=== PATIENT | female | born 1945 ===

== ENCOUNTER 2017-10-10 09:08 | Inpatient (IN) | payer MEDICARE ==
[2017-10-10 09:14] VITALS: BMI 27.4
--- NOTE | 2017-10-10 09:52 | ED PDOC ---
Arrival/HPI - General Chief Complaint: Weakness/Neurological Deficit Time Seen by Provider: 10/10/17 09:39 Historian: Patient - History of Present Illness Narrative History of Present Illness (Text): 10/10/17 09:50 A 72 year old female, whose past medical history includes diabetes and hypertension, brought into the emergency department by EMS complaining of dizziness and feeling unbalanced upon waking around 07:00 this morning. Patient also notes waking up with weakness to left arm and numbness to left finger tips. She states she felt fine prior to going to bed last night. Patient denies any fever, chills, nausea, vomiting, abdominal pain, urinary symptoms, chest pain, shortness of breath, cough, headache or any other complaints. PMD: Dr. Aurea Go Time/Duration: Other (07:00 this morning) Symptom Onset: Other (Pt woke up with symptoms) Symptom Course: Unchanged Quality: Other Context: Home Past Medical History - Provider Review Nursing Documentation Reviewed: Yes - Infectious Disease Hx of Infectious Diseases: None - Cardiac Hx Cardiac Disorders: Yes Hx Hypertension: Yes - Pulmonary Hx Respiratory Disorders: No - Neurological Hx Neurological Disorder: No - HEENT Hx HEENT Disorder: No - Renal Hx Renal Disorder: No - Endocrine/Metabolic Hx Endocrine Disorders: Yes Hx Diabetes Mellitus Type 1: Yes (NIDD) - Hematological/Oncological Hx Blood Disorders: No - Integumentary Hx Dermatological Disorder: Yes Other/Comment: HISTORY OF HIVES FROM BUG BITES - Musculoskeletal/Rheumatological Hx Musculoskeletal Disorders: No - Gastrointestinal Hx Gastritis: Yes - Genitourinary/Gynecological Hx Genitourinary Disorders: No - Psychiatric Hx Psychophysiologic Disorder: No Hx Substance Use: No - Surgical History Hx Hysterectomy: Yes Other/Comment: CYST REMOVED RIGHT LEG - Anesthesia Hx Anesthesia: Yes Hx Anesthesia Reactions: No Hx Malignant Hyperthermia: No Family/Social History - Physician Review Nursing Documentation Reviewed: Yes Family/Social History: No Known Family HX Smoking Status: Never Smoked Hx Alcohol Use: No Hx Substance Use: No Allergies/Home Meds Allergies/Adverse Reactions: Allergies aspirin Adverse Reaction (Intermediate, Verified 10/10/17 09:14) ITCHING Home Medications: Home Meds Medication Instructions Recorded Confirmed Atenolol [Tenormin] 50 mg PO DAILY 05/22/14 10/10/17 Losartan/Hydrochlorothiazide 12.100 mg PO DAILY 05/22/14 10/10/17 [Hyzaar 12.5 mg-100 mg] Omeprazole [Prilosec] 20 mg PO DAILY 05/22/14 10/10/17 Sitagliptin Phosphate [Januvia] 50 mg PO DAILY 05/22/14 10/10/17 hydrOXYzine HCl [Atarax] 10 mg PO DAILY 05/22/14 10/10/17 Glipizide [Glipizide ER] 5 mg PO DAILY 08/18/16 10/10/17 metFORMIN [glucOPHAGE] 500 mg PO DAILY 08/18/16 10/10/17 Losartan [Cozaar] 0 g PO DAILY 10/10/17 10/10/17 Review of Systems - Physician Review All systems were reviewed & negative as marked: Yes - Review of Systems Constitutional: absent: Fevers, Night Sweats Respiratory: absent: SOB, Cough Cardiovascular: absent: Chest Pain Gastrointestinal: absent: Abdominal Pain, Nausea, Vomiting Genitourinary Female: absent: Dysuria, Frequency, Hematuria Neurological: Dizziness (Unbalanced), Other (Left arm weakness with numbness to finger tips). absent: Headache Physical Exam Vital Signs Reviewed: Yes Vital Signs Temp Pulse Resp BP Pulse Ox 10/10/17 14:51 116 H 31 H 10/10/17 13:00 98.9 F 88 18 126/80 98 10/10/17 12:09 93 H 18 185/76 H 98 10/10/17 11:17 88 20 100 10/10/17 11:05 85 205/88 H 10/10/17 09:27 86 20 206/90 H 97 10/10/17 09:09 99.6 F 93 H 20 220/98 H 99 Appearance: Positive for: Well-Appearing, Non-Toxic, Comfortable Pain Distress: None Mental Status: Positive for: Alert and Oriented X 3 Finger Stick Blood Glucose: 388 - Systems Exam Head: Present: Atraumatic, Normocephalic Pupils: Present: PERRL Extroacular Muscles: Present: EOMI Conjunctiva: Present: Normal Mouth: Present: Moist Mucous Membranes Neck: Present: Normal Range of Motion Respiratory/Chest: Present: Clear to Auscultation, Good Air Exchange. No: Respiratory Distress, Accessory Muscle Use Cardiovascular: Present: Regular Rate and Rhythm, Normal S1, S2. No: Murmurs Abdomen: Present: Normal Bowel Sounds. No: Tenderness, Distention, Peritoneal Signs Upper Extremity: Present: Normal Inspection, NORMAL PULSES. No: Cyanosis, Edema Lower Extremity: Present: Normal Inspection, NORMAL PULSES. No: Edema Neurological: Present: GCS=15, CN II-XII Intact, Other (Ataxia left arm). No: Normal Cerebellar Funct Skin: Present: Warm, Dry, Normal Color. No: Rashes Psychiatric: Present: Alert, Oriented x 3, Normal Insight, Normal Concentration Medical Decision Making ED Course and Treatment: 10/10/17 09:51 Code stroke activate at this time. Disc w Dr More, agrees no tpa, requests MRI 10/10/17 11:03 EKG shows NSR at 84 BPM with 1st degree AV block, no acute ischemia. Interpreted by me. Report Date : 10/10/2017 10:14:53 PROCEDURE: CT HEAD WITHOUT CONTRAST. Dictator : Ankur Mandujano MD IMPRESSION: No acute intracranial hemorrhage. Age-indeterminate infarct changes right caudate head though likely chronic due to localized ex vacuo dilatation of the right frontal horn. Chronic appearing pontine lacunar-type infarct changes. Minor chronic periventricular white matter ischemic changes. Mild localized ex vacuo dilatation right frontal horn with mild generalized volume loss. Note these findings were discussed with Dr. Gonzalez at approximately 10: 10 a.m. with written down and read back verification. Report Date : 10/10/2017 12:00:07 Procedure: Chest xray Dictator : Ankur Mandujano MD IMPRESSION: Minor linear atelectasis or scarring left mid to lower lung field. Report Date : 10/10/2017 12:44:06 PROCEDURE: MRI BRAIN WITHOUT CONTRAST Dictator : Ankur Mandujano MD IMPRESSION: Acute/ subacute infarct changes right parasagittal midpons region. Mild to moderate chronic white matter ischemic changes with chronic on lacunar- type infarct right caudate head. Mild generalized volume loss. Note these findings were discussed with Dr. Pulido 1 at approximately 12:30 p.m. with written down and read back verification Report Date : 10/10/2017 12:09:27 PROCEDURE: CT Angiography of the Brain. Dictator : Ankur Mandujano MD IMPRESSION: No evidence of occlusion or significant stenosis however there are some minor calcified atherosclerotic plaque changes seen along on both cavernous carotid siphons. - Critical Care Critical Care Minutes: 45 minutes - Lab Interpretations Lab Results: 10/10/17 10:06 10/10/17 10:06 Lab Results 10/10/17 11:10: Blood Type Confirm O POSITIVE 10/10/17 10:15: Blood Type O POSITIVE, Antibody Screen Negative, BBK History Checked No verified bt 10/10/17 10:06: Vitamin B12 870 10/10/17 10:06: Hemoglobin A1c 7.6 H 10/10/17 10:06: Sodium 137, Potassium 4.3, Chloride 97 L, Carbon Dioxide 23, Anion Gap 21 H, BUN 12, Creatinine 0.5 L, Est GFR ( Amer) > 60, Est GFR ( Non-Af Amer) > 60, Random Glucose 405 H*, Calcium 9.9, Total Bilirubin 0.8, AST 46 H, ALT 36, Alkaline Phosphatase 100, Troponin I < 0.01, Total Protein 8.9 H, Albumin 4.9 H, Globulin 4.1, Albumin/Globulin Ratio 1.2, Triglycerides 183 H, Cholesterol 232 H, LDL Cholesterol Direct 141 H, HDL Cholesterol 68 H 10/10/17 10:06: PT 10.3, INR 0.94, APTT 30.6 10/10/17 10:06: WBC 11.7 H, RBC 4.75, Hgb 14.0, Hct 42.2, MCV 88.8, MCH 29.5, MCHC 33.2, RDW 13.7, Plt Count 370, MPV 10.2, Gran % 82.2 H, Lymph % (Auto) 10.4 L, [place] % (Auto) 6.0, Eos % (Auto) 1.0 L, Baso % (Auto) 0.4, Gran # 9.59 H , Lymph # 1.2, [place] # 0.7 H, Eos # 0.1, Baso # 0.05 10/10/17 09:30: POC Glucose (mg/dL) 388 H - RAD Interpretation Radiology Orders: 10/10/17 09:52 HEAD W/O (CODE STROKE) [CT] Stat CHEST PORTABLE [RAD] Stat 10/10/17 10:05 ANGIOGRAPHY HEAD [CT] Stat 10/10/17 10:06 BRAIN WITHOUT CONTRAST [MRI] Stat - Medication Orders Current Medication Orders: Acetaminophen (Tylenol 325mg Tab) 650 mg PO Q6H PRN PRN Reason: Pain, moderate (4-7) Last Admin: 10/13/17 03:21 Dose: 650 mg MAR Pain/Vitals Document 10/13/17 03:21 GC (Rec: 10/13/17 03:21 GC [id number]) Pain Reassessment Is This A Pain ReAssessment? No Sleep Is patient sleeping during reassessment? No Presence of Pain Presence of Pain Yes Location Pain Location Body Pool Technician Re-Assess: MAR Pain/Vitals Document 10/13/17 04:21 GC (Rec: 10/13/17 04:36 GC [id number]) Pain Reassessment Is This A Pain ReAssessment? Yes Sleep Is patient sleeping during reassessment? Yes Atorvastatin Calcium (Lipitor) 80 mg PO DIN [facility] Last Admin: 10/13/17 18:22 Dose: 80 mg Clonidine HCl (Catapres-Tts2 0.2 Mg/24 Hr) 1 patch TD Q7D@1000 [facility] Last Admin: 10/13/17 13:21 Dose: 1 patch MAR Pulse and Blood Pressure Document 10/13/17 13:21 SG (Rec: 10/13/17 13:22 [email or web address]) Pulse Pulse Rate (60-90) 85 Blood Pressure Blood Pressure (100/60-150/90) 172/81 MAR Transdermal Patch Site Document 10/13/17 13:21 SG (Rec: 10/13/17 13:22 [email or web address]) Transdermal Patch Site Transdermal Patch Site Left Upper Chest Clopidogrel Bisulfate (Plavix) 75 mg PO DAILY [facility] Last Admin: 10/13/17 09:38 Dose: 75 mg Famotidine (Pepcid) 40 mg PO HS [facility] Last Admin: 10/12/17 21:24 Dose: 40 mg Hydralazine HCl (Apresoline) 10 mg IVP Q6H PRN PRN Reason: Other Last Admin: 10/13/17 15:09 Dose: 10 mg IVP Administration Document 10/13/17 15:09 (Rec: 10/13/17 15:10 [email or web address]) Charges for Administration # of IVP Administrations 1 MAR Pulse and Blood Pressure Document 10/13/17 15:09 SG (Rec: 10/13/17 15:10 [email or web address]) Pulse Pulse Rate (60-90) 106 Blood Pressure Blood Pressure (100/60-150/90) 189/75 Hydralazine HCl (Apresoline) 50 mg PO BID [facility] Last Admin: 10/13/17 18:21 Dose: 50 mg MAR Pulse and Blood Pressure Document 10/13/17 18:21 (Rec: 10/13/17 18:22 [email or web address]) Pulse Pulse Rate (60-90) 103 Blood Pressure Blood Pressure (100/60-150/90) 163/58 Hydrochlorothiazide (Microzide) 12.5 mg PO DAILY [facility] Last Admin: 10/13/17 09:39 Dose: 12.5 mg Nicardipine HCl (Cardene Iv Premix) 20 mg in 200 mls @ 50 mls/hr IV .Q4H PRN; Protocol; 5 MG/HR PRN Reason: TITRATE PER MD ORDER Last Titration: 10/11/17 02:00 Dose: 0 mg/hr, 0 mls/hr Titration Intervention Document 10/11/17 02:00 [facility] (Rec: 10/11/17 04:07 [id number]) Titration Intake Titration Intake 30 Cumulative Intake 110 Cumulative Intake (Rx) 110 Waste Amount 0 Container Volume 90 Titration Dosing Titration Dose 0 IV Rate 0 Intake/Decrease Paused Cumulative Dose 11 Insulin Detemir (Levemir) 10 unit SC DAILY [facility] Last Admin: 10/13/17 09:39 Dose: 10 unit MAR Blood Glucose Document 10/13/17 09:39 SG (Rec: 10/13/17 09:40 [email or web address]) Blood Glucose Finger Stick Blood Glucose (70-120) 264 Subcutaneous Administrations Document 10/13/17 09:39 SG (Rec: 10/13/17 09:40 [email or web address]) Charges for Administration # of Subcutaneous Administrations 1 Insulin Human Regular (Humulin R Med) 0 units SC ACHS [facility] PRN Reason: Protocol Last Admin: 10/13/17 18:20 Dose: 5 units MAR Blood Glucose Document 10/13/17 18:20 SG (Rec: 10/13/17 18:21 [email or web address]) Blood Glucose Finger Stick Blood Glucose (70-120) 274 Subcutaneous Administrations Document 10/13/17 18:20 SG (Rec: 10/13/17 18:21 [email or web address]) Charges for Administration # of Subcutaneous Administrations 1 Loratadine (Claritin) 10 mg PO DAILY [facility] Last Admin: 10/13/17 09:38 Dose: 10 mg Losartan Potassium (Cozaar) 100 mg PO DAILY [facility] Last Admin: 10/13/17 09:38 Dose: 100 mg Metoprolol Tartrate (Lopressor) 50 mg PO BID [facility] Last Admin: 10/13/17 18:22 Dose: 50 mg MAR Pulse and Blood Pressure Document 10/13/17 18:22 SG (Rec: 10/13/17 18:22 SG [id number]) Pulse Pulse Rate (60-90) 103 Blood Pressure Blood Pressure (100/60-150/90) 163/58 Montelukast Sodium (Singulair) 10 mg PO [facility] Last Admin: 10/12/17 21:24 Dose: 10 mg Olopatadine HCl (Patanol 0.1% Oph Soln) 0 ml OU TID PRN PRN Reason: Allergy symptoms Discontinued Medications Alprazolam (Xanax) 0.25 mg PO STAT STA PRN Reason: Protocol Stop: 10/13/17 18:13 Last Admin: 10/13/17 18:22 Dose: 0.25 mg Behavioural Document 10/13/17 18:22 (Rec: 10/13/17 18:23 SG [id number]) Maintenance Maintenance Dose No Nonmedicinal Nonmedicinal Interventions Redirect Activity Behavior Behavior for Medication: Anxiety Re-Assess: Reassess Psych Meds Document 10/13/17 19:22 GC (Rec: 10/13/17 21:21 GC [id number]) Reassess Psych Med Effective Aspirin (Aspirin Chewable) 81 mg PO STAT STA Stop: 10/10/17 12:16 Last Admin: 10/10/17 14:11 Dose: Clonidine HCl (Catapres) 0.1 mg PO STAT STA Stop: 10/11/17 10:54 Last Admin: 10/11/17 11:16 Dose: 0.1 mg MAR Pulse and Blood Pressure Document 10/11/17 11:16 [facility] (Rec: 10/11/17 11:17 [id number]) Pulse Pulse Rate (60-90) 113 Blood Pressure Blood Pressure (100/60-150/90) 205/78 Clonidine HCl (Catapres) 0.1 mg PO 1200 [facility] Stop: 10/11/17 12:01 Last Admin: 10/11/17 12:18 Dose: 0.1 mg MAR Pulse and Blood Pressure Document 10/11/17 12:18 [facility] (Rec: 10/11/17 12:18 [id number] Pulse Pulse Rate (60-90) 117 Blood Pressure Blood Pressure (100/60-150/90) 188/75 Clonidine HCl (Catapres) 0.1 mg PO 1300 [facility] Stop: 10/11/17 13:01 Last Admin: 10/11/17 13:33 Dose: Not Given Non-Admin Reason: BP Parameters Not Met [facility] Pulse and Blood Pressure Document 10/11/17 13:33 [facility] (Rec: 10/11/17 13:33 [id number] Blood Pressure Blood Pressure (100/60-150/90) 153/73 Sodium Chloride (Sodium Chloride 0.9%) 500 mls @ 999 mls/hr IV .Q31M STA Stop: 10/10/17 10:23 Last Admin: 10/10/17 11:05 Dose: 999 mls/hr eMAR Start Stop Document 10/10/17 11:05 RG (Rec: 10/10/17 11:14 RG [id number]) Intravenous Solution Start Date 10/10/17 Start Time 11:05 End Date 10/10/17 Insulin Human Regular (Humulin R) 4 units IV STAT STA Stop: 10/10/17 09:55 Last Admin: 10/10/17 11:05 Dose: 4 units eMAR Start Stop Document 10/10/17 11:05 RG (Rec: 10/10/17 11:16 RG [id number]) Intravenous Solution Start Date 10/10/17 Start Time 11:10 End Date 10/10/17 End time 11:10 Total Infusion Time 0 MAR Blood Glucose Document 10/10/17 11:05 RG (Rec: 10/10/17 11:16 RG [id number]) Blood Glucose Finger Stick Blood Glucose (70-120) 388 Labetalol HCl (Trandate) 10 mg IVP STAT STA Stop: 10/10/17 09:54 Last Admin: 10/10/17 11:05 Dose: 10 mg IVP Administration Document 10/10/17 11:05 RG (Rec: 10/10/17 11:15 RG [id number]) Charges for Administration # of IVP Administrations 1 MAR Pulse and Blood Pressure Document 10/10/17 11:05 (Rec: 10/10/17 11:15 RG [id number]) Pulse Pulse Rate (60-90) 85 Blood Pressure Blood Pressure (100/60-150/90) 205/88 Metoprolol Tartrate (Lopressor) 25 mg PO BID [facility] Pneumococcal Polyvalent Vaccine (Pneumovax 23 Vaccine) 0.5 ml IM .ONCE ONE Stop: 10/10/17 18:54 NIHSS Scale ([place]) Time Performed: 09:45 rTPA Inclusion/Exclusion - Refusal of Treatment Patient Refused Treatment: No - Inclusion Criteria for Altepase Patient is 18 years or Older: Yes The Clinical Diagnosis of Ischemic Stroke That is Causing a Potentially Disabling Neurological Deficit: Yes Time of Onset is Well Established to be Less Than 270 Minute Before Treatment Would Begin: No Risk/Benefit Discussed With Patient/Family Member Present: No NIHSS Stroke Scale 3 - Date/Time Evaluation Performed Date Performed: 10/11/17 Time Performed: 09:45 - How Severe is the Stroke Level of Consciousness: 0=Alert LOC to Questions: 0=Both comments correct LOC to commands: 0=Obeys both correctly Best Gaze: 0=Normal Visual: 0=No visual loss Facial: 0=Normal Motor Arm - Left: 0=No drift Motor Arm - Right: 0=No drift Motor Leg - Left: 0=No drift Motor Leg - Right: 0=No drift Limb Ataxia: 1=Present Upper or Lower Sensory: 0=Normal Best Language: 0=No aphasia Dysarthia: 0=Normal articulation Extinction & Inattention (Neglect): 0=Normal, no object Score: 1 - Scribe Statement The provider has reviewed the documentation as recorded by the Danya Myers Provider Scribe Attestation: All medical record entries made by the Scribe were at my direction and personally dictated by me. I have reviewed the chart and agree that the record accurately reflects my personal performance of the history, physical exam, medical decision making, and the department course for this patient. I have also personally directed, reviewed, and agree with the discharge instructions and disposition. Disposition/Present on Arrival - Present on Arrival Any Indicators Present on Arrival: No History of DVT/PE: No History of Uncontrolled Diabetes: No Urinary Catheter: No History of Decub. Ulcer: No History Surgical Site Infection Following: None - Disposition Have Diagnosis and Disposition been Completed?: Yes Diagnosis: Acute CVA (cerebrovascular accident) Disposition: HOSPITALIZED Disposition Time: 11:15 Patient Problems: Current Active Problems Problem Status Onset Acute CVA (cerebrovascular accident) Acute Condition: STABLE
[2017-10-10] MEDS ORDERED: Labetalol 5 mg/ml Inj 20ML IVP STA (09:53)
[2017-10-10] MEDS ORDERED: Sodium Chloride 0.9% 500 ML IV STA (09:53)
[2017-10-10] MEDS ORDERED: Insulin Regular 1 UNITS/0.01 ML ML IV STA (09:54)
--- NOTE | 2017-10-10 10:16 | CT ---
PROCEDURE: CT HEAD WITHOUT CONTRAST. HISTORY: Code Stroke COMPARISON: No prior study available comparison TECHNIQUE: Axial computed tomography images were obtained through the head/brain without intravenous contrast. Radiation dose: Total exam DLP = 827.43 mGy-cm. This CT exam was performed using one or more of the following dose reduction techniques: Automated exposure control, adjustment of the mA and/or kV according to patient size, and/or use of iterative reconstruction technique. FINDINGS: HEMORRHAGE: No acute parenchymal, subarachnoid or extra-axial hemorrhage. BRAIN: Age indeterminate infarct changes right caudate head likely chronic due to localized ex vacuo dilatation right frontal horn. Probable chronic lacunar-type infarcts in the midpons region. In addition, there also appears to be some minimal chronic periventricular white matter ischemic changes as well. No obstructive hydrocephalus not withstanding minor ex vacuo dilatation of the right frontal horn Mild generalized volume loss. VENTRICLES: No obstructive hydrocephalus. CALVARIUM: There are no acute calvarial fractures. PARANASAL SINUSES: Unremarkable as visualized. No significant inflammatory changes. MASTOID AIR CELLS: Unremarkable as visualized. No inflammatory changes. OTHER FINDINGS: Changes of right-sided cataract surgery. IMPRESSION: No acute intracranial hemorrhage. . Age-indeterminate infarct changes right caudate head though likely chronic due to localized ex vacuo dilatation of the right frontal horn. Chronic appearing pontine lacunar-type infarct changes. Minor chronic periventricular white matter ischemic changes. Mild localized ex vacuo dilatation right frontal horn with mild generalized volume loss. Note these findings were discussed with Dr. Gonzalez at approximately 10:10 a.m. with written down and read back verification.
[2017-10-10 10:18] LABS: BASO # 0.05 K/mm3 (0.0-2.0); BASO % 0.4 % (0.0-3.0); EOS # 0.1 (0.0-0.7); GRAN # 9.59 (1.4-6.5); GRAN % 82.2 % (50.0-68.0); LYMPH # 1.2 (1.2-3.4); LYMPH % 10.4 % (22.0-35.0); MEAN CELL VOLUME 88.8 fl (80.0-105.0); MEAN CORPUSCULAR HEMOGLOBIN 29.5 pg (25.0-35.0); MEAN CORPUSCULAR HGB CONC 33.2 g/dl (31.0-37.0); MEAN PLATELET VOLUME 10.2 fl (7.0-11.0); MONO # 0.7 (0.1-0.6); RBC 4.75 10^6/uL (3.5-6.1); RED CELL DISTRIBUTION WIDTH 13.7 % (11.5-14.5); WHITE BLOOD COUNT 11.7 10^3/ul (4.5-11.0)
[2017-10-10 10:26] LABS: INR 0.94 (0.93-1.08); PARTIAL THROMBOPLASTIN TIME 30.6 Seconds (25.1-36.5); PROTHROMBIN TIME 10.3 SECONDS (9.4-12.5)
[2017-10-10 10:31] LABS: ALB/GLOB RATIO 1.2 (1.1-1.8); ALBUMIN 4.9 g/dL (3.0-4.8); ALT/SGPT 36 U/L (7-56); AST/SGOT 46 U/L (14-36); BLOOD UREA NITROGEN 12 mg/dL (7-21); CALCIUM 9.9 mg/dL (8.4-10.5); GFR AFRICAN-AMERICAN > 60; GFR NON-AFRICAN AMERICAN > 60; HDL CHOLESTEROL 68 mg/dL (29-60)
[2017-10-10 10:35] LABS: LDL CHOLESTEROL 141 mg/dL (0-129); TROPONIN I < 0.01 ng/mL
[2017-10-10] MEDS ORDERED: Iodixanol 320 MG/ML 100 ML BOTTLE IV ONE (10:40)
--- NOTE | 2017-10-10 12:01 | RAD ---
HISTORY: CVA COMPARISON: No prior. FINDINGS: LUNGS: Minor linear atelectasis or scarring left mid to lower lung field. PLEURA: No significant pleural effusion identified, no pneumothorax apparent. CARDIOVASCULAR: Heart appears borderline/ mildly enlarged OSSEOUS STRUCTURES: Degenerative changes both shoulder girdles. Mild multilevel degenerative spondylosis of the thoracic spine VISUALIZED UPPER ABDOMEN: Normal. OTHER FINDINGS: None. IMPRESSION: Minor linear atelectasis or scarring left mid to lower lung field.
[2017-10-10 12:07] LABS: URINE APPEARANCE CLEAR (CLEAR); URINE BILIRUBIN NEGATIVE (NEGATIVE); URINE BLOOD NEGATIVE (NEGATIVE); URINE COLOR LIGHT YELLOW (YELLOW); URINE GLUCOSE (UA) >=1000 mg/dL (NEGATIVE); URINE LEUKOCYTE ESTERASE NEGATIVE Leu/uL (NEGATIVE); URINE NITRATE NEGATIVE (NEGATIVE); URINE PROTEIN NEGATIVE mg/dL (<30 mg/dL); URINE UROBILINOGEN 0.2 E.U./dL (<1 E.U./dL)
[2017-10-10] MEDS ORDERED: Iohexol 350 MG/100 ML VIAL ONE (12:07)
--- NOTE | 2017-10-10 12:45 | MRI ---
PROCEDURE: MRI BRAIN WITHOUT CONTRAST HISTORY: CVA COMPARISON: Comparison made with prior CT scan brain earlier same day. TECHNIQUE: Multiplanar, multisequence MR images of the brain were obtained without intravenous contrast enhancement. FINDINGS: HEMORRHAGE: No acute parenchymal, subarachnoid or extra-axial hemorrhage. . No evidence of hemosiderin deposition identified on gradient echo weighted sequence. DWI: There are small acute/ subacute infarct changes seen in the right parasagittal midpons region the in addition to concomitant chronic appearing brainstem ischemic changes. . BRAIN PARENCHYMA: Mild to moderate diffuse/ confluent chronic periventricular white extending peripherally into the deep and subcortical white matter both cerebral hemispheres seen to much better advantage on this study as compared to prior noncontrast CT scan. The multiple small chronic appearing lacunar type infarcts scattered about the deep and subcortical white matter bilaterally. Chronic appearing infarct right caudate head with mild ex vacuo dilatation of the right caudate head with. No obvious parenchymal nor extra-axial masses or collections seen on this noncontrast exam. Mild generalized volume loss VENTRICLES: No obstructive hydrocephalus. CRANIUM: Unremarkable. ORBITS: Changes of right-sided cataract surgery again noted. PARANASAL SINUSES/MASTOIDS: Tiny focal area of polypoid like mucosal thickening left maxillary antrum. VASCULAR SYSTEM: Visualized major vascular flow voids at skull base patent. At. OTHER FINDINGS: None. IMPRESSION: Acute/ subacute infarct changes right parasagittal midpons region. Mild to moderate chronic white matter ischemic changes with chronic on lacunar-type infarct right caudate head. Mild generalized volume loss. Note these findings were discussed with Dr. Pulido 1 at approximately 12:30 p.m. with written down and read back verification
--- NOTE | 2017-10-10 12:54 | CT ---
PROCEDURE: CT Angiography of the Brain. HISTORY: CVA COMPARISON: Comparison made with prior noncontrast CT scan brain earlier same day TECHNIQUE: CT angiography of the intracranial arteries was performed. Coronal and sagittal maximum intensity projection reformatted images were generated. . Approximately 100 cc Omnipaque 350 contrast material injected during this procedure. This CT exam was performed using one or more of the following dose reduction techniques: Automated exposure control, adjustment of the mA and/or kV according to patient size, and/or use of iterative reconstruction technique. Radiation dose: Total DLP = 79.65. FINDINGS: INTERNAL CEREBRAL ARTERIES: Re- demonstrated are small partially calcified atherosclerotic plaque changes seen along both carotid siphons. However the the skullbase,, petrous, cavernous and supraclinoid segments are bilaterally are patent. ANTERIOR CEREBRAL ARTERIES: Unremarkable. A1 and A2 segments are widely patent. Smaller distal branches unremarkable, as visualized. MIDDLE CEREBRAL ARTERIES: Unremarkable. M1 and M2 segments are widely patent. Perisylvian branches appear grossly symmetric. POSTERIOR CIRCULATION: There is mild asymmetry of the vertebral arteries, left-sided which is larger in caliber/more dominant than the right. Basilar artery and posterior cerebral arteries are patent. ANEURYSM/ VASCULAR MALFORMATIONS: No evidence of large aneurysm nor vascular malformation. OTHER FINDINGS: None. IMPRESSION: No evidence of occlusion or significant stenosis however there are some minor calcified atherosclerotic plaque changes seen along on both cavernous carotid siphons.
--- NOTE | 2017-10-10 14:13 | CON ---
DATE: 10/10/2017 CHIEF COMPLAINT: Left facial droop, dysarthria. HISTORY OF PRESENT ILLNESS: This is a 72-year-old woman with history of type 2 diabetes, hypertension, dyslipidemia, not on any aspirin prior, who presents to the ER because she was at a workshop and she just had extreme dizziness in terms of lightheadedness and spinning of the room, and felt numbness of her left arm and left face and hand. She had elevated systolic and diastolic blood pressures of 220/98, which is slowly being brought down by the ER physician. Her CAT scan of the head showed old chronic infarcts in the right caudate and right frontal areas with chronic ischemic changes. She underwent an MRI of the brain stat, which showed restricted diffusion in the right pontine area and the paramedian area most likely related to her hypertensive infarct. Currently, she is moving all extremities, no pronator drift, but has reduced left hand finger-tapping when compared to the right. PAST MEDICAL HISTORY: Type 2 diabetes mellitus, hypertension, and dyslipidemia. REVIEW OF SYSTEMS: A 14-point review of systems is negative except as in the HPI. MEDICATIONS: Atenolol, Prilosec, Januvia, Atarax, Glipizide, Glucophage, and losartan. SOCIAL HISTORY: No illicit drug use, smoking, or EtOH abuse. FAMILY HISTORY: Noncontributory. PHYSICAL EXAMINATION: VITAL SIGNS: Temperature of 98.3, pulse rate of 88, blood pressure 185/76, respiratory rate of 18, oxygen saturation of 98% on room air. GENERAL: The patient is sitting up in bed, in no acute distress. HEENT: Atraumatic, normocephalic. PERRLA. Extraocular muscles intact. NECK: Supple. No JVD. No adenopathy noted. LUNGS: Clear to auscultation. No adventitious sounds. HEART: S1 and S2. Normal rate and rhythm. No murmurs, rubs, or gallops. ABDOMEN: Soft, nontender, nondistended. Bowel sounds present. EXTREMITIES: No clubbing. No cyanosis. Peripheral pulses 2+ felt bilaterally. NEUROLOGIC: The patient is alert and oriented to person, place, month, and year. Speech is fluent without errors, with some very mild dysarthria, but otherwise no aphasia noted. Cranial nerves II through XII intact except for mild left nasal fold flattening. Motor exam: Moves all extremities equally. No pronator drift seen. Decreased left finger-tapping when compared to the right. Toes are upgoing bilaterally. Sensory exam: Decreased light touch, pinprick, and proprioception up to the calves bilaterally. Decreased vibration of the toes. DTRs are 2+ throughout and 1 at the knees and ankles. Coordination: Pzqjgb-[id number] intact. Gait is deferred for now. LABORATORY DATA: Sodium is 137, potassium 4.3, chloride 97, carbon dioxide 23, BUN of 12, creatinine 0.5, random glucose of 405. Triglycerides 183. Total cholesterol is 232. ASSESSMENT AND PLAN: 1. This is a 72-year-old woman with history of type 2 diabetes mellitus, dyslipidemia, hypertension, not on any aspirin prior to her hospitalization, who presented with left arm and left leg numbness as well as left facial numbness and dizziness. She started to have persistent dizziness and therefore came to the ER. She had elevated systolic and diastolic blood pressures of more than 200/90. She underwent an MRI of the brain which showed acute right pontine infarct. An acute right pontine infarct is likely secondary to diffuse atherosclerotic disease from uncontrolled hypertension and dyslipidemia. Currently, her blood sugars are 405. I recommend to give her some insulin sliding scale parameters. 2. Since she states she feels that aspirin bothers her stomach, we will recommend her to be on Plavix 75 mg daily in addition to atorvastatin of 80 mg p.o. daily. 3. Keep her blood sugars between 140 to 180. Needs diabetic diet and diabetic education, may be adjusted on diabetic medications. Get a hemoglobin A1c. 4. Carotid Doppler to assess for any carotid disease. 5. Echocardiogram. 6. PT/OT eval. Once again, thank you for this consult. Ceferino More MD
--- NOTE | 2017-10-10 14:33 | CARD ---
APPROVED REPORT EKG Measurement Heart [id number] <Conclusion> Sinus rhythm with 1st degree AV block Otherwise normal ECG
[2017-10-10] MEDS: Insulin Reg-MEDIUM-Coverage SC SCH ×2 (17:02→22:10)
[2017-10-10] MEDS ORDERED: Nicardipine 20 MG/200 ML 20 MG/200 ML BAG IV PRN (17:43)
[2017-10-10] MEDS ORDERED: Pneumococcal 23-Valent Vaccine IM ONE (18:53)
[2017-10-10] MEDS ORDERED: Influenza Vaccine 60 mcg/0.5 mL SYR (4YR UP) IM ONE (18:53)
--- NOTE | 2017-10-10 21:25 | CON ---
DATE: 10/10/2017 HEALTH CARE FACILITIES INSPECTOR CONSULT REQUESTING PHYSICIAN: Laxmi Alicea MD CHIEF COMPLAINT: The patient presented with complaints of dizziness and weakness in her left upper extremity. HISTORY OF PRESENT ILLNESS: Ms. Montemayor is a 72-year-old female with a history of diabetes, hypertension, and she was brought to the emergency room after waking up this morning feeling as though she was dizzy and unbalanced, as well as weakness in her left upper extremity. The patient states that prior to going to bed last night she was fine. No fever or chills. No nausea or vomiting. No abdominal pain. No chest pain. No diarrhea. The patient has been admitted to the intensive care unit, Neurology has evaluated, and she is hemodynamically stable, awake and alert, and her left-sided weakness has pretty much resolved. PAST MEDICAL HISTORY: As above. ALLERGIES: SHE HAS ALLERGIES TO ASPIRIN. MEDICATIONS: Her medications can be evaluated as per the nurse's intake form. SOCIAL HISTORY: She has no history of smoking, EtOH abuse or drug abuse. FAMILY HISTORY: Noncontributory. REVIEW OF SYSTEMS: CONSTITUTIONAL: All negative. HEENT: All negative. CARDIOVASCULAR: All negative. RESPIRATORY: All negative. : All negative. MUSCULOSKELETAL: All negative. NEUROPSYCHIATRIC: The patient did present with dizziness, as well as left upper extremity weakness. ENDOCRINE: All negative. HEMATOLOGIC: All Negative. IMMUNOLOGIC: All negative. INTEGRITY: All negative. PHYSICAL EXAMINATION VITAL SIGNS: Note that her temperature is 98.9, her pulse is 98, respirations are 18 and BP is 163/62. SKIN: Warm and dry. HEENT: Head: Atraumatic and normocephalic. Eyes: Reactive to light. Ears, Nose and Throat: Seem to be within normal limits. NECK: Supple. No JVD. No thyroid enlargement or lymph nodes. HEART: Regular rate and rhythm. Normal S1, S2. LUNGS: Reveal good breath sounds bilaterally. ABDOMEN: Soft, nontender. Normal bowel sounds. No organomegaly noted. GENITALIA AND RECTAL: Deferred. MUSCULOSKELETAL: No joint deformities. EXTREMITIES: Reveal no significant edema. NEUROLOGICALLY: The patient has some mild weakness in the left upper extremity, the dizziness pretty much has resolved. She is moving all other extremities with normal strength. LABORATORY DATA: As far as her laboratories, her white count is 11.7, hemoglobin is 14.0, hematocrit 42.2 with platelets of 370,000. Sodium is 137, potassium 4.3, chloride 97, CO2 of 23 with a BUN of 12, creatinine of 0.5 and a glucose of 405. Chest x-ray reveals that there is a linear left-sided atelectasis and some mild pulmonary scarring on the left as well. The patient's MRI of the brain reveals that there is acute/subacute infarct changes in the right parasagittal mid-izabel region. Abim-la-vrnxzjtq chronic white matter ischemic changes with chronic on lacunar-type infarct right caudate head, and also there is mild generalized volume loss. The patient's CT angiography did not show any clots. IMPRESSION: As far as my impression, this patient has acute stroke with weakness in the left upper extremity and dizziness. She has a history of diabetes as well as hypertension and noted to have some linear atelectasis in the left lung as well as some mild pulmonary scarring. PLAN: As far as our plan, we will admit to the intensive care unit. The patient will be on our stroke protocol. We will monitor her blood sugar with finger-sticks and administer her appropriate insulin. The patient is on hydralazine to control her blood pressure and she is getting Plavix and Lipitor. We will continue to treat aggressively along with the other consultants and the primary care doctor. Bryan Alicia MD
--- NOTE | 2017-10-11 01:20 | HP ---
CHIEF COMPLAINT: Headache and weakness. HISTORY OF PRESENT ILLNESS: Ms. Sim Lane is a 72-year-old lady with past medical history of diabetes mellitus, hypertension, came to the emergency department by EMS, complaining of dizziness and feeling unbalanced. At approximately 7 o'clock this morning, patient noticed walking up with weakness of the left arm and numbness of the left fingertips. She states she felt fine prior to going to bed last night. The patient denies any fever, chills, nausea, vomiting or diarrhea. No hematuria or hematochezia or any other complaints. PAST MEDICAL HISTORY: Hypertension, diabetes mellitus, history of hives from but bites, gastritis, hysterectomy. FAMILY HISTORY: Father and mother noncontributory. HABITS: Never smoked, no drugs, no ethanol. ALLERGIES: THE PATIENT IS ALLERGIC WITH ASPIRIN. HOME MEDICATIONS: Atenolol, losartan, Prilosec, Januvia, Atarax, glipizide, Glucophage, Cozaar. REVIEW OF SYSTEMS: The patient is seen and examined in the ER in the code room. No fever, no chills, no shortness of breath, no coughing, no chest pain, no abdominal pain. No nausea, vomiting or diarrhea. No dysuria, frequency or hematuria. Feeling dizziness, unbalanced. Left arm weakness with numbness of the fingertips. No headache. PHYSICAL EXAMINATION: VITAL SIGNS: Temperature 98.3, pulse 90, blood pressure 195/114, respiratory rate 20. HEENT: Head is normocephalic, atraumatic. Eyes PERRLA. Extraocular movements intact. Conjunctiva clear. Nose patent. Mucous membranes moist. NECK: Supple. No carotid bruits. No JVD or thyromegaly. CHEST: Bilaterally symmetrical. HEART: S1 and S2 positive. LUNGS: Clear to auscultation. ABDOMEN: Soft. Bowel sounds present. No organomegaly. EXTREMITIES: No edema, no cyanosis. NEUROLOGIC: The patient is awake, alert, doing conversation. Moving all 4 extremities. MEDICATIONS: Hydralazine, insulin, Lipitor, Plavix. LABORATORY DATA: White blood cells 11.7, hemoglobin 14.0, hematocrit 42.2, platelets 70. Sodium 137, potassium 4.3, BUN 12, creatinine 0.5, glucose 220, random glucose 405. AST 46. ASSESSMENT AND PLAN: Ms. Sim Lane is a 72-year-old lady with leukocytosis, hypochloremia, diabetes mellitus uncontrolled, abnormal liver function tests, hypercholesterolemia, hypertriglyceridemia, history of hypertension. The patient was not on aspirin prior to her hospitalization, came in with left arm and left leg numbness as well as left facial numbness and dizziness. Her blood pressure was 200/90 in the emergency room, actually this is hypertension, went for MRI, showed right pontine infarction and acute right pontine infarction is likely secondary to diffuse atherosclerotic disease from the uncontrolled hypertension, dyslipidemia. Neurologist recommended Plavix in addition to atorvastatin 80 mg. We will control diabetes with diabetic education because of her long holiday weekend, we do not have a art educator available, but we will do by ourselves. Carotid Doppler of the neck was done, but results are pending. We will need echocardiography, PT/OT. Discussion done with Dr. Ceferino More and with ER physician , Repeat labs. We will follow. Laxmi Alicea MD MTDD
[2017-10-11 05:58] LABS: BLOOD UREA NITROGEN 10 mg/dL (7-21); CALCIUM 9.6 mg/dL (8.4-10.5); GFR AFRICAN-AMERICAN > 60; GFR NON-AFRICAN AMERICAN > 60; HDL CHOLESTEROL 56 mg/dL (29-60)
[2017-10-11 06:06] LABS: MEAN CELL VOLUME 87.6 fl (80.0-105.0); MEAN CORPUSCULAR HEMOGLOBIN 28.5 pg (25.0-35.0); MEAN CORPUSCULAR HGB CONC 32.5 g/dl (31.0-37.0); MEAN PLATELET VOLUME 9.6 fl (7.0-11.0); RBC 4.21 10^6/uL (3.5-6.1); RED CELL DISTRIBUTION WIDTH 13.9 % (11.5-14.5); WHITE BLOOD COUNT 8.6 10^3/ul (4.5-11.0)
[2017-10-11 06:09] LABS: LDL CHOLESTEROL 115 mg/dL (0-129)
[2017-10-11] MEDS: Insulin Reg-MEDIUM-Coverage SC SCH ×4 (08:17→22:01)
--- NOTE | 2017-10-11 11:22 | US ---
PROCEDURE: Bilateral carotid artery duplex ultrasound HISTORY: Carotid stenosis TIA PHYSICIAN(S): Ricky Pierre MD. TECHNIQUE: Duplex sonography and color-flow Doppler were used to evaluate the carotid bifurcations and limited segments of the vertebral arteries bilaterally. FINDINGS: There is mild smooth heterogeneous plaque noted at the carotid bifurcations bilaterally. The peak systolic velocity in the proximal right internal carotid artery is 111 cm/sec. This corresponds to a 40-59 percent proximal right ICA stenosis. Mildly elevated systolic velocities are noted in the proximal right external carotid artery. There is antegrade flow in the right vertebral artery. The peak systolic velocity in the proximal left internal carotid artery is 114 cm/sec. This corresponds to a 40-59 percent proximal left ICA stenosis. Mildly elevated systolic velocities are noted in the proximal left external carotid artery. There is antegrade flow in the left vertebral artery. IMPRESSION: 1. Bilateral 40-59 percent proximal ICA stenoses. 2. Antegrade flow in both vertebral arteries.
--- NOTE | 2017-10-11 12:04 | PN ---
DATE: 10/11/2017 SUBJECTIVE: The patient is resting in bed. No complaints of shortness of breath, cough, wheezing, or chest congestion. Her dizziness has resolved and her left upper arm weakness has pretty much resolved as well. The patient ate breakfast and no problem, hemodynamically is stable. PHYSICAL EXAMINATION: VITAL SIGNS: Note that her temperature is 98.4, her pulse is 85, respirations are 24, and her BP is 121/52. SKIN: Warm and dry. HEENT: Head, atraumatic, normocephalic. Eyes, reactive to light. Ear, nose, and throat seemed to be within normal limits. NECK: Supple. No JVD. No thyroid enlargement. No lymph nodes. HEART: Has regular rate and rhythm. Normal S1, S2. LUNGS: Reveal good breath sounds bilaterally. ABDOMEN: Soft, nontender. Normal bowel sounds. No organomegaly noted. GENITALIA: Deferred. RECTAL: Deferred. MUSCULOSKELETAL: No joint deformities. EXTREMITIES: Reveal no edema. NEUROLOGIC: The patient is moving all extremities with just slight decreased strength in the left upper extremity. LABORATORY DATA: Her white count is 8.6, hemoglobin is 12.0, hematocrit is 36.9 with platelets of 330,000. Her sodium is 137, potassium 3.9, chloride 102, CO2 of 26 with a BUN of 10, creatinine of 0.4, and glucose of 215. IMPRESSION: This patient has acute stroke with weakness in the left upper extremity and dizziness. He has a history of diabetes, hypertension, and is noted on chest x-ray to have some linear atelectasis in the left lung with some pulmonary scarring. PLAN: We will continue with intensive care treatment, continue on the stroke protocol, and follow her blood sugars closely. The patient is getting blood pressure medications to maintain her systolic and diastolic at appropriate levels, and she is on Plavix and Lipitor. We will continue to treat aggressively along with the other consultants and the primary care doctor. Bryan Alicia MD
--- NOTE | 2017-10-11 13:01 | PN ---
DATE: 10/11/2017 CHIEF COMPLAINT: Followup for the left facial droop and dysarthria. SUBJECTIVE: The patient is seen and examined at the bedside. Her blood pressure was over 200 systolic overnight and has been controlled. We kept her permissive hypertension over 24 hours, consider to keep her blood pressures between 130s to 140s systolic for now and diastolic 70 to 80s. MRI of the brain showed right parasagittal midbrain infarction which was secondary to uncontrolled blood pressure. She is doing much better. She denies any headache at this time. PAST MEDICAL HISTORY: Type 2 diabetes mellitus, hypertension, and dyslipidemia. REVIEW OF SYSTEMS: A 14-point review of systems is negative except in the HPI. FAMILY HISTORY: Noncontributory. SOCIAL HISTORY: No illicit drug use, smoking or EtOH abuse. PHYSICAL EXAMINATION VITAL SIGNS: Temperature of 98.4, pulse rate of 85, blood pressure 191/79, respiratory rate of 24, oxygen saturation 97% via room air. GENERAL: The patient is sitting up in bed, in no acute distress. HEENT: Head is atraumatic and normocephalic. PERRLA. Extraocular muscles intact. NECK: Supple. No JVD. No adenopathy noted. LUNGS: Clear to auscultation. No adventitious sounds. HEART: S1, S2. Normal rate and rhythm. No murmurs, rubs, or gallops. ABDOMEN: Soft, nontender, and nondistended. Bowel sounds present. EXTREMITIES: No clubbing. No cyanosis. Peripheral pulses are 2+ felt bilaterally. NEUROLOGIC: The patient is alert and oriented to person, place, month, and year. Speech is fluent without any errors except for very minimal , otherwise no aphasia noted. Cranial nerves II through XII are intact. Mild nasolabial fold flattening seen. Motor examination: Moves all extremities equally. No pronator drift seen. Decreased left finger tapping when compared to the right. Toes are upgoing bilaterally. Sensory exam: Decreased light touch, pinprick, proprioception, and vibration is intact up to the calves. Decreased vibration of the toes. DTRs are 2+ throughout, 1 at the knees and ankles. Coordination of [id number]-tl-[id number] intact. Gait is deferred for now. LABORATORY DATA: Carotid Doppler shows proximal bilateral 40%-59% proximal ICA stenosis. A1c is 7.6. Sodium is 137, potassium 3.9, chloride of 102, carbon dioxide 26, BUN of 10, creatinine of 0.4, random glucose of 218. ASSESSMENT AND PLAN: This is a 72-year-old woman with past medical history of type 2 diabetes mellitus, dyslipidemia, hypertension and was not on aspirin prior to her hospitalization, who presented with left arm and left leg weakness and numbness and left facial numbness, dizziness and had persistent hypertensive urgency more than 200 systolic over 90 and underwent MRI of the brain which showed an acute right parasagittal mid pontine infarct which is secondary to diffuse atherosclerotic disease from uncontrolled hypertension and diabetes. Her A1c is 7.6 indicating poorly controlled diabetes. She has proximal bilateral 40%-59% internal carotid artery stenosis in both carotid arteries which is consistent with diffuse atherosclerotic disease. RECOMMENDATIONS: At this time, recommend: 1. She just had permissive hypertension over 24 hours, so we recommend to keep her systolic blood pressure between 130s-140s and diastolic between 70-80s mmHg. 2. Plavix 75 mg plus atorvastatin of 80 mg p.o. daily for stroke prevention. 3. Keep blood sugars between 140-180 and need better diabetic regimen and need better diabetic diet. 4. Continue to stabilize her blood pressures and continue PT and OT evaluation. Thank you for this followup. Ceferino More MD
--- NOTE | 2017-10-11 20:37 | CON ---
DATE: 10/11/2017 CARDIOLOGY CONSULTATION HISTORY: The patient is a 72-year-old woman, who is a patient of Dr. Aurea Go, at [facility] who presents with focal neurologic deficits which have resolved. PAST MEDICAL HISTORY: The patient's past medical history includes a history of diabetes mellitus, hypertension, and hypercholesterolemia. The patient denies any cardiac history. Denies chest pain. Denies shortness of breath. SOCIAL HISTORY: The patient does not smoke. REVIEW OF SYSTEMS: A 14-point review of systems was reviewed in detail. She is free of cardiac symptomatology. PHYSICAL EXAMINATION: VITAL SIGNS: Her blood pressure is 191/79, heart rate is in the 100. NECK: Negative JVD. LUNGS: Without rales. HEART: Reveals S1, S2. EXTREMITIES: Without edema. NEUROLOGIC: The patient is oriented x3 with resolution of all focal deficits. LABORATORY DATA: EKG shows normal sinus rhythm with no acute changes. The hemoglobin is 12.0, glucose is 218. BUN and creatinine are unremarkable. Troponin is negative x1. IMPRESSION: 1. Transient ischemic attack. 2. Accelerated hypertension. 3. Diabetes mellitus. 4. Obesity. Given these findings, we will start the patient on clonidine for better blood pressure control. In addition, Lipitor has been started. We will obtain an echocardiogram to evaluate LV function. Ricky Kumar MD
--- NOTE | 2017-10-12 00:19 | PN ---
SUBJECTIVE: Patient is seen and examined on the bedside, looking comfortable. No nausea, vomiting, or diarrhea. No hematuria. No hematochezia. No cough. No wheezing. No chest pain in the sternum. Dizziness is better. Left upper weakness has been pretty much resolved as well. Patient is hemodynamically stable. PHYSICAL EXAMINATION VITAL SIGNS: Temperature 98.4, pulse 85, respiratory rate 24, blood pressure 120/52. HEENT: Head is normocephalic and atraumatic. Eyes; PERRLA. Extraocular muscles are intact. Conjunctivae clear. Nose patent. Mucous membranes moist. NECK: Supple. No carotid bruits, JVD or thyromegaly. CHEST: Bilateral symmetrical. HEART: S1 and S2 positive. LUNGS: Clear to auscultation. ABDOMEN: Soft. Bowel sounds present. No organomegaly. EXTREMITIES: No edema. No cyanosis. NEUROLOGIC: Patient is awake and alert. Moving all 4 extremities. No focal deficits LABORATORY DATA: White blood cell 8.6, hemoglobin 12.0, hematocrit 36.9, and platelets 330,000. Sodium 137, potassium 3.9, BUN 10, creatinine 0.4, glucose 215. MEDICATIONS: Hydralazine, nicardipine, insulin, Lipitor, Pepcid, Plavix, and Tylenol. ASSESSMENT AND PLAN: Ms. Sim Lane is 72 years old lady with history of type 2 diabetes mellitus, dyslipidemia, hypertension, came with left arm and left leg weakness and numbness and left facial numbness and dizziness, accelerated hypertension, systolic was more than 200 and diastolic more than 90, has acute right parasagittal mid pontine infarction which is secondary to diffuse atherosclerotic disease from the uncontrolled hypertension, diabetes mellitus and patient was not taking any aspirin. Hemoglobin A1c is 7.6 indicating poorly control of diabetes. Patient has proximal bilateral 70% to 59% internal carotid artery stenosis of both carotid arteries, which is consistent with diffuse atherosclerotic disease. Patient is getting now blood pressure medication, started Plavix and aspirin by the Neurologist, need well control of blood sugar, need physical therapy and occupational therapy. Reviewed Dr. Ceferino More and Dr. Bryan Alicia's notes. Gastrointestinal and deep vein thrombosis prophylaxis. Patient is still in the Unit. Chest x-ray shows some linear atelectasis in the left lung with some pulmonary scarring. We will continue Intensive Care Unit treatment. Continue on stroke protocol. We will follow up. Laxmi Alicea MD
[2017-10-12] MEDS: Insulin Reg-MEDIUM-Coverage SC SCH ×4 (08:34→22:24)
--- NOTE | 2017-10-12 09:03 | CP.PCM.PN ---
Subjective - Date & Time of Evaluation Date of Evaluation: 10/12/17 Time of Evaluation: 07:30 - Subjective Subjective: patient seen and examined, reports complaints of dizziness. Denies cp, sob, DAY. Objective - Vital Signs/Intake and Output Vital Signs (last 24 hours): Temp Pulse Resp BP Pulse Ox 97.8 F 91 H 13 182/76 H 96 10/12/17 00:00 10/12/17 06:36 10/12/17 06:00 10/12/17 06:36 10/12/17 04:00 Intake and Output: 10/12/17 10/12/17 06:59 18:59 Intake Total 200 Balance 200 - Medications Medications: Current Medications Acetaminophen (Tylenol 325mg Tab) 650 mg PO Q6H PRN PRN Reason: Pain, moderate (4-7) Last Admin: 10/11/17 01:59 Dose: 650 mg Atorvastatin Calcium (Lipitor) 80 mg PO DIN [facility] Last Admin: 10/11/17 17:40 Dose: 80 mg Clopidogrel Bisulfate (Plavix) 75 mg PO DAILY [facility] Last Admin: 10/11/17 10:26 Dose: 75 mg Famotidine (Pepcid) 40 mg PO HS [facility] Last Admin: 10/11/17 22:02 Dose: 40 mg Hydralazine HCl (Apresoline) 10 mg IVP Q6H PRN PRN Reason: Other Last Admin: 10/12/17 06:36 Dose: 10 mg Hydrochlorothiazide (Microzide) 12.5 mg PO DAILY [facility] Nicardipine HCl (Cardene Iv Premix) 20 mg in 200 mls @ 50 mls/hr IV .Q4H PRN; Protocol; 5 MG/HR PRN Reason: TITRATE PER MD ORDER Last Titration: 10/11/17 02:00 Dose: 0 mg/hr, 0 mls/hr Insulin Detemir (Levemir) 10 unit SC DAILY [facility] Insulin Human Regular (Humulin R Med) 0 units SC ACHS [facility] PRN Reason: Protocol Last Admin: 10/12/17 08:34 Dose: 3 units Losartan Potassium (Cozaar) 100 mg PO DAILY [facility] Metoprolol Tartrate (Lopressor) 25 mg PO BID [facility] - Labs Labs: 10/11/17 05:00 10/11/17 05:00 PT 10.3 SECONDS (9.4-12.5) 10/10/17 10:06 INR 0.94 (0.93-1.08) 10/10/17 10:06 APTT 30.6 Seconds (25.1-36.5) 10/10/17 10:06 - Constitutional Appears: Well, Non-toxic, No Acute Distress - Head Exam Head Exam: NORMAL INSPECTION - Eye Exam Eye Exam: EOMI - ENT Exam ENT Exam: Mucous Membranes Moist - Respiratory Exam Respiratory Exam: Clear to Ausculation Bilateral, NORMAL BREATHING PATTERN - Cardiovascular Exam Cardiovascular Exam: Tachycardia, REGULAR RHYTHM, +S1, +S2 - GI/Abdominal Exam GI & Abdominal Exam: Soft, Normal Bowel Sounds - Extremities Exam Extremities Exam: Full ROM - Neurological Exam Neurological Exam: Alert, Awake, Oriented x3 Assessment and Plan - Assessment and Plan (Free Text) Assessment: 72yo female a/w acute CVA HTN CVA DM Atherosclerotic disease - currently hypertensive, SBP ranging 160-170, resuming home PO BP meds - CT head noted, neurology cardiology following Recommend: - supp o2 as needed - follow up cultures - BP control, goal SBP 140 - Start HCTZ, Losartan - Start BB, low dose - check EKG - follow up cardiology - FS control, start Levemir 10ur QHS, hold PO oral hypoglycemic agents - check ECHO - DVT ppx, HSQ - GI ppx, PPI - if BP better controlled, and HR, can be transferred to telemetry
[2017-10-12 09:25] LABS: HEMOGLOBIN 12.8 g/dL (12.0-16.0); MEAN CELL VOLUME 88.4 fl (80.0-105.0); MEAN CORPUSCULAR HEMOGLOBIN 29.1 pg (25.0-35.0); MEAN CORPUSCULAR HGB CONC 32.9 g/dl (31.0-37.0); MEAN PLATELET VOLUME 9.5 fl (7.0-11.0); RBC 4.4 10^6/uL (3.5-6.1); RED CELL DISTRIBUTION WIDTH 13.9 % (11.5-14.5); WHITE BLOOD COUNT 9.2 10^3/ul (4.5-11.0)
[2017-10-12 09:40] LABS: BLOOD UREA NITROGEN 16 mg/dL (7-21); CALCIUM 9.4 mg/dL (8.4-10.5); GFR AFRICAN-AMERICAN > 60; GFR NON-AFRICAN AMERICAN > 60
[2017-10-12] MEDS: Insulin Detemir 100 units/ml Vial (Levemir) SC SCH (09:55)
--- NOTE | 2017-10-12 13:50 | PN ---
DATE: REASON FOR THE CONSULTATION: Acute CVA, cardiac evaluation. SUBJECTIVE: The patient denies any chest pain, shortness of breath, or any palpitations. OBJECTIVE: GENERAL: Not in distress. Complaining of mild numbness in left hand. VITAL SIGNS: Temperature afebrile, heart rate 91, blood pressure 182/76. HEENT: PERRLA, intact. NECK: Supple. No carotid bruits. No thyromegaly. CHEST: Clear to auscultation. HEART: S1 and S2 regular. ABDOMEN: Soft. EXTREMITIES: Clubbing and cyanosis negative. LABORATORY DATA: Blood workup as follows: WBC 8.6, hemoglobin 12, hematocrit 36.9, and platelet count of 330. Chemistry shows sodium 137, potassium 3.9, chloride 102, carbon dioxide of 26, anion gap of 14, BUN 10 and creatinine 0.4. Triglycerides 116, cholesterol 192, 115, and HDL 56. TSH is 0.78. Hemoglobin A1c 7.6. An MRI of the brain shows acute/subacute infarct in right parasagittal mid region, [id number] chronic white matter ischemic changes with chronic lacunar infarct. IMPRESSION: Acute cerebrovascular accident, diabetes, hypertension, hyperlipidemia, uncontrolled hypertension, sinus tachycardia in the morning, transient ischemic attack, accelerated hypertension, and obesity. RECOMMENDATIONS: Aggressive medical treatment. Continue as per recommendation. Continue well control of blood pressure. I will start metoprolol, increase to 50 b.i.d. Continue clopidogrel as per recommendation. Continue atorvastatin, and we will put 25 b.i.d. hydralazine, increase metoprolol to 50 b.i.d. and increase 25 b.i.d. ____ p.r.n. We will continue p.r.n. We will follow with you. Thank you Dr. Alicea for providing us the opportunity in taking care of the patient, Ariana Montemayor. We will get an echo to assess the LV function. Kesha Rodas MD
[2017-10-12] MEDS ORDERED: Olopatadine 0.1% Opht Sol OU PRN (18:50)
--- NOTE | 2017-10-13 00:32 | PN ---
DATE: SUBJECTIVE: The patient is a 72-year-old female. The patient is seen and examined on the bedside, looking comfortable. No nausea, vomiting, or diarrhea. No hematuria or hematochezia. No swelling of the legs. No chest pain or palpitation. No shortness of breath. Left eye is like red because she has itching a lot. According to the patient, she has allergies and she has always itchy eyes and she will put the eye drops. Denies dizziness. PHYSICAL EXAMINATION: VITAL SIGNS: Temperature 97.8, pulse 91, respiratory rate 13, blood pressure 180/76, and pulse oximetry 96. HEENT: Head is normocephalic and atraumatic. Eyes; PERRLA. Extraocular muscles are intact. Conjunctivae clear. Nose patent. Mucous membranes moist. NECK: Supple. No carotid bruits, JVD, or thyromegaly. CHEST: Bilaterally symmetrical. HEART: S1 and S2 positive. LUNGS: Clear to auscultation. ABDOMEN: Soft. Bowel sounds present. No organomegaly. EXTREMITIES: No edema. No cyanosis. NEUROLOGIC: The patient is awake and alert, f/u simple commands. MEDICATIONS: Tylenol, Lipitor, Plavix, Pepcid, hydralazine, hydrochlorothiazide, Cardene, IV, Levemir, and Cozaar. LABORATORY DATA: White blood cell 8.6, hemoglobin 12.0, hematocrit 36.9, and platelets 330. Sodium 137, potassium 3.9, BUN 10, creatinine 0.8, and glucose 218. ASSESSMENT AND PLAN: Mrs. Sim Lane is a 72-year-old female with acute cerebrovascular accident, history of hypertension, history of cerebrovascular accident, diabetes mellitus, atherosclerotic disease, and now has allergic conjunctivitis on the left side. CT scan of the head noted. Neurology and Cardiology will see the patient. Getting supplementary oxygen. Followup cultures. Blood pressure control. Start hydrochlorothiazide, losartan, and beta-blockers. Need good sugar control. Check echo, DVT, and GI prophylaxis. Transferred to telemetry. We will start the patient on Singulair, Zyrtec, and Patanol eye drops. Hypercholesterolemia, sinus tachycardia, and obesity. Need really aggressive medical treatment. Dr. Rodas increased metoprolol to 50 b.i.d. and continue Plavix, atorvastatin, hydralazine, and metoprolol. Gastrointestinal and deep vein thrombosis prophylaxis. Repeat labs. We will follow. Laxmi Alicea MD NAM[facility]
[2017-10-13 07:25] LABS: HEMOGLOBIN 12.9 g/dL (12.0-16.0); MEAN CELL VOLUME 86.8 fl (80.0-105.0); MEAN CORPUSCULAR HEMOGLOBIN 28.9 pg (25.0-35.0); MEAN CORPUSCULAR HGB CONC 33.2 g/dl (31.0-37.0); MEAN PLATELET VOLUME 9.8 fl (7.0-11.0); RBC 4.47 10^6/uL (3.5-6.1); WHITE BLOOD COUNT 10.3 10^3/ul (4.5-11.0)
[2017-10-13 07:32] LABS: BLOOD UREA NITROGEN 16 mg/dL (7-21); CALCIUM 9.5 mg/dL (8.4-10.5); GFR AFRICAN-AMERICAN > 60; GFR NON-AFRICAN AMERICAN > 60
[2017-10-13] MEDS: Insulin Reg-MEDIUM-Coverage SC SCH ×4 (08:33→21:32)
[2017-10-13] MEDS: Insulin Detemir 100 units/ml Vial (Levemir) SC SCH (09:39)
--- NOTE | 2017-10-13 12:54 | PN ---
DATE: REASON FOR THE CONSULTATION: Acute CVA, cardiac evaluation. SUBJECTIVE: The patient denies any chest pain, but complained of pain in the left arm when blood pressure was recorded. OBJECTIVE: GENERAL: Not in apparent distress. Lying flat on the bed. VITAL SIGNS: As follows, temperature afebrile, heart rate 67, and blood pressure 206/71. HEENT: PERRLA, intact. NECK: Supple. No carotid bruits or thyromegaly. CHEST: Clear to auscultation. HEART: S1 and S2, regular. ABDOMEN: Soft. EXTREMITIES: Clubbing and cyanosis negative. LABORATORY DATA: Blood workup as follows: WBC 10.2, hemoglobin 12.9, hematocrit 38.8, and platelet count 383. Chemistry shows sodium 130, potassium 3.0, chloride 101, carbon dioxide 24, anion gap of 15, BUN 16, and creatinine 0.5. IMPRESSION: Very poorly controlled blood pressure, hypertensive emergency, sinus tachycardia, transient ischemic attack, accelerated hypertension, and acute cerebrovascular accident. RECOMMENDATIONS: Aggressive control of blood pressure. Continue losartan. Continue metoprolol 50 b.i.d. We will increase hydralazine to 50 b.i.d. and put Catapres patch for sustained regular blood pressure. We will follow with you. Thank you Dr. Alicea for providing us the opportunity in taking care of the patient, Ariana Montemayor. We will follow with you. We will get an echo to assess the LV function. Kesha Rodas MD
--- NOTE | 2017-10-13 16:12 | PN ---
DATE: 10/13/2017 NEUROLOGY FOLLOWUP CHIEF COMPLAINT: Followup for left facial droop and dysarthria. SUBJECTIVE: The patient is seen and examined at the bedside. Blood pressure today is 189/75, it is definitely much better than before. Cardiology onboard are managing aggressive control of the blood pressure. She is on metoprolol 50 p.o. b.i.d., as well as they increased hydralazine to 50 p.o. b.i.d. plus a Catapres patch to regularize the blood pressure. They recommended an echocardiogram, which I agreed with. PAST MEDICAL HISTORY: Type 2 diabetes mellitus, hypertension, and dyslipidemia. REVIEW OF SYSTEMS: A 14-point review of systems is negative except in the HPI. FAMILY HISTORY: Noncontributory. SOCIAL HISTORY: No illicit drug use, smoking, or EtOH abuse. PHYSICAL EXAMINATION: VITAL SIGNS: Temperature of 99.5, pulse rate of 85, blood pressure 189/85, and respiratory rate of 20. GENERAL: The patient is sitting up in bed, in no acute distress. HEENT: Head is atraumatic and normocephalic. PERRLA. Extraocular muscles intact. NECK: Supple. No JVD. No adenopathy noted. LUNGS: Clear to auscultation. No adventitious sounds. HEART: S1 and S2. Normal rate and rhythm. No murmurs, rubs, or gallops. ABDOMEN: Soft, nontender, and nondistended. Bowel sounds present. EXTREMITIES: No clubbing. No cyanosis. Peripheral pulses are 2+ felt bilaterally. NEUROLOGIC: The patient is alert and oriented to person, place, month, and year. Speech is fluent without any errors. Cranial nerves II through XII are intact. Motor examination: Moves all extremities equally. No pronator drift seen. Decreased left finger tapping when compared to the right. Toes are upgoing bilaterally. Sensory exam: Decreased light touch and pinprick to the calves bilaterally. Decreased vibration of the toes. bilaterally. DTRs are 2+ throughout, 1 at the knees and ankles. Coordination of [id number] intact. Gait is deferred for now. LABORATORY DATA: Sodium is 136, potassium 3.9, chloride of 101, carbon dioxide 24, BUN of 16, creatinine 0.5, and random glucose of 259. ASSESSMENT: This is a 72-year-old woman with past medical history of type 2 diabetes mellitus, dyslipidemia, hypertension, who presented to hospital with transient left arm and left leg weakness and numbness and dizziness and had hypertensive urgency with systolic blood pressure of more than 200. She underwent an MRI of the brain, which showed an acute right parasagittal/midbrain mid pontine infarct secondary to diffuse atherosclerotic disease for uncontrolled hypertension, diabetes. Her hemoglobin is A1c is 7.6 indicating poorly controlled diabetes. She has also poorly controlled blood pressure. Her carotid Doppler showed possible 40% to 59% bilateral internal carotid artery stenosis with antegrade flow to vertebral arteries, which is also secondary to diffuse atherosclerotic disease. RECOMMENDATIONS: At this time: 1. Get better control of her blood pressure as per Cardiology with Catapres patch, as well as hydralazine 50 mg p.o. b.i.d. and metoprolol 50 mg p.o. b.i.d. and losartan and we will get an echocardiogram. 2. Plavix 75 mg plus atorvastatin 80 for stroke prevention. 3. Diabetic diet and keep blood sugars between 140-180. 4. PT and OT evaluation and follow with Cardiology for further blood pressure management. Once again, she is neurologically stable from our standpoint. Ceferino More MD
--- NOTE | 2017-10-14 02:51 | PN ---
DATE: SUBJECTIVE: The patient is a 72-year-old female. Patient is seen and examined on the bedside, looking comfortable. No nausea, vomiting, or diarrhea. No hematuria. No hematochezia. Feeling anxious. No headache. No dizziness. No chest pain or palpitation. REVIEW OF SYSTEMS: A 14-point review of systems is negative except above. PHYSICAL EXAMINATION VITAL SIGNS: Temperature 99.5, pulse of 85, blood pressure 189/85, respiratory rate 20. HEENT: Head is normocephalic and atraumatic. Eyes: PERRLA. Extraocular muscles are intact. Conjunctivae clear. Nose: Patent. Mucous membranes moist. NECK: Supple. No carotid bruits, JVD, or thyromegaly. CHEST: Bilaterally symmetrical. HEART: S1 and S2 positive. LUNGS: Clear to auscultation. ABDOMEN: Soft. Bowel sounds present. No organomegaly. EXTREMITIES: No edema. No cyanosis. NEUROLOGIC: Patient is awake and alert. Moving all 4 extremities. MEDICATIONS: Hydralazine, Nicardipine, Claritin, Cozaar, insulin, Levemir, Lipitor, Lopressor, hydrochlorothiazide, Tylenol. LABORATORY DATA: White blood cell 10.3, hemoglobin 12.9, hematocrit 38.8, platelets of 383. Sodium 136, potassium 3.9, BUN 15, creatinine 0.5, glucose 180 to 274. ASSESSMENT AND PLAN: Ms. Sim Lane, is a 72-year-old female with history of leukocytosis improved, uncontrolled diabetes mellitus, seen by Ceferino Barth, neurologist, Dr. Rodas, professor of vegetable science. The patient has history of hypertension and dyslipidemia, came into the hospital with transient left upper and left leg weakness and numbness and dizziness, and came with hypertensive urgency with systolic blood pressure more than 200. MRI showed acute right parasagittal/midbrain mid pontine infarct secondary to diffuse atherosclerotic disease or uncontrollable hypertension. The patient's hemoglobin A1c is 7.6 indicating poorly control. Carotid Doppler shows 40% to 59% bilateral internal carotid artery stenosis with antegrade flow to the vertebral arteries, which will be secondary to atherosclerotic disease. Trying to control blood pressure, Plavix 75 mg plus atorvastatin 80 mg for stroke prevention. Diabetic diet, diabetic education, out of bed, physical therapy. The patient was anxious, I gave her one dose of Xanax 0.25 mg. Trying to get subacute rehab for the patient. We will follow up. Laxmi Alicea MD
[2017-10-14] MEDS: Insulin Reg-MEDIUM-Coverage SC SCH ×3 (09:31→17:18)
[2017-10-14] MEDS: Insulin Detemir 100 units/ml Vial (Levemir) SC SCH (09:32)
--- NOTE | 2017-10-14 10:45 | MRI ---
PROCEDURE: MRI BRAIN WITHOUT CONTRAST HISTORY: worsening symptoms ? extension COMPARISON: 10/10/2017 TECHNIQUE: Multiplanar, multisequence MR images of the brain were obtained without intravenous contrast enhancement. FINDINGS: HEMORRHAGE: None DWI: There is a slight increase in the right-sided pontine infarct which measures 10 x 19 mm previously 7 x 16 mm. There are no new areas of infarction. BRAIN PARENCHYMA: No atrophy or chronic microvascular ischemic changes. VENTRICLES: Unremarkable. No hydrocephalus. CRANIUM: Unremarkable. ORBITS: Grossly unremarkable. PARANASAL SINUSES/MASTOIDS: Clear VASCULAR SYSTEM: Skull base flow voids intact. OTHER FINDINGS: None. IMPRESSION: Slight increase in size of right-sided pontine infarct
--- NOTE | 2017-10-14 12:50 | CP.PCM.PN ---
<Steph Smith - Last Filed: 10/15/17 00:26> Subjective - Date & Time of Evaluation Date of Evaluation: 10/14/17 Time of Evaluation: 11:00 - Subjective Subjective: 72 yr female w/ history of DM, HTN, and gastritis. Seen at bedside . She is uncomfortable about the new onset of L side hemiparesis. Her arm was offloaded on towels and instructed to squeeze hand for some range of motion exercises. She denies headaches, n/v, chills, diarrhea, constipation, urinary changes. No distress noted. Objective - Vital Signs/Intake and Output Vital Signs (last 24 hours): Temp Pulse Resp BP Pulse Ox 98.0 F 120 H 18 144/70 95 10/14/17 06:00 10/14/17 09:34 10/14/17 06:00 10/14/17 09:34 10/14/17 06:00 Intake and Output: 10/14/17 10/14/17 06:59 18:59 Intake Total 1080 Output Total 2000 Balance -920 - Medications Medications: Current Medications Acetaminophen (Tylenol 325mg Tab) 650 mg PO Q6H PRN PRN Reason: Pain, moderate (4-7) Last Admin: 10/13/17 03:21 Dose: 650 mg Atorvastatin Calcium (Lipitor) 80 mg PO DIN [facility] Last Admin: 10/13/17 18:22 Dose: 80 mg Clonidine HCl (Catapres-Tts3 0.3 Mg/24 Hr) 1 patch TD Q7D@1000 [facility] Clopidogrel Bisulfate (Plavix) 75 mg PO DAILY [facility] Last Admin: 10/14/17 09:34 Dose: 75 mg Famotidine (Pepcid) 40 mg PO HS [facility] Last Admin: 10/13/17 21:32 Dose: 40 mg Hydralazine HCl (Apresoline) 10 mg IVP Q6H PRN PRN Reason: Other Last Admin: 10/14/17 07:11 Dose: 10 mg Hydralazine HCl (Apresoline) 50 mg PO BID [facility] Last Admin: 10/14/17 09:34 Dose: 50 mg Hydrochlorothiazide (Hydrodiuril) 50 mg PO DAILY [facility] Last Admin: 10/14/17 09:33 Dose: 50 mg Insulin Detemir (Levemir) 10 unit SC DAILY [facility] Last Admin: 10/14/17 09:32 Dose: 10 unit Insulin Human Regular (Humulin R Med) 0 units SC ACHS [facility] PRN Reason: Protocol Last Admin: 10/14/17 09:31 Dose: 5 units Loratadine (Claritin) 10 mg PO DAILY [facility] Last Admin: 10/14/17 09:32 Dose: 10 mg Losartan Potassium (Cozaar) 100 mg PO DAILY [facility] Last Admin: 10/14/17 09:34 Dose: 100 mg Metoprolol Tartrate (Lopressor) 50 mg PO BID [facility] Last Admin: 10/14/17 09:33 Dose: 50 mg Montelukast Sodium (Singulair) 10 mg PO HS [facility] Last Admin: 10/13/17 21:32 Dose: 10 mg Nicardipine HCl (Cardene Cap) 30 mg PO TID [facility] Olopatadine HCl (Patanol 0.1% Opht Soln) 0 ml OU TID PRN PRN Reason: Allergy symptoms - Labs Labs: 10/13/17 06:30 10/13/17 06:30 PT 10.3 SECONDS (9.4-12.5) 10/10/17 10:06 INR 0.94 (0.93-1.08) 10/10/17 10:06 APTT 30.6 Seconds (25.1-36.5) 10/10/17 10:06 - Constitutional Appears: Well - Head Exam Head Exam: ATRAUMATIC, NORMAL INSPECTION, NORMOCEPHALIC - Eye Exam Eye Exam: EOMI, Normal appearance, PERRL - ENT Exam ENT Exam: Mucous Membranes Moist, Normal Exam - Neck Exam Neck Exam: Full ROM, Normal Inspection. absent: Lymphadenopathy - Respiratory Exam Respiratory Exam: Clear to Ausculation Bilateral, NORMAL BREATHING PATTERN - Cardiovascular Exam Cardiovascular Exam: REGULAR RHYTHM, +S1, +S2. absent: Murmur - GI/Abdominal Exam GI & Abdominal Exam: Soft, Normal Bowel Sounds. absent: Tenderness - Extremities Exam Extremities Exam: Full ROM, Normal Capillary Refill, Normal Inspection. absent : Joint Swelling, Pedal Edema - Neurological Exam Neurological Exam: Alert, Awake, CN II-XII Intact, Normal Gait, Oriented x3 Neuro motor strength exam: Left Upper Extremity: 2/1, Right Upper Extremity: 5, Left Lower Extremity: 3, Right Lower Extremity: 5 - Psychiatric Exam Psychiatric exam: Anxious - Skin Skin Exam: Dry, Intact, Normal Color, Warm Assessment and Plan (1) Hypertensive crisis Status: Acute (2) Hemiparesis affecting left side as late effect of cerebrovascular accident Status: Acute (3) Diabetes mellitus with hyperglycemia Status: Acute (4) Acute CVA (cerebrovascular accident) Status: Acute - Assessment and Plan (Free Text) Plan: Agree with current plan of care. Pt may require heparin drip as MRI of brain shows increase in R sided pontine infract. OT/PT onboard. GI/VTE prophylaxis. Falls, aspiration precautions. Consults: Neurologist - Dr. More = BP control, echo, plavix, glucose control 140-180, PT /OT, neurologically stable [employer] - Dr. Rodas = losartan, metoprolol, hydralazine, catapres patch, atorvastatin, echo ordered Reviewed: 10/14/17 MRI brain = slight increase in size of R sided pontine infarct US carotid artery = bilateral 40-59% proximal ICA stenoses 10/10/17 MRI brain = acute/subacute infarct changes R parasagittal midpons region, mild to mod chronic white matter changes with chronic on lacunar type R caudate head, mild generalized volume loss CT angio brain = No evidence of occlusion or significant stenosis, minor calcified atherosclerotic plaque changes along both cavernous carotid siphons CT head = no acute intracranial hemorrhage, infract changes R caudate head, chronic appearing pontine lacunar-type infarct changes. minor chronic periventricular white matter ischemic changes CXR = minor linear atelectasis or scarring L mid to lower lung ECHO = EF 65-70% ECG = SR w. 1st degree AV block <Laxmi Alicea - Last Filed: 10/15/17 09:31> Objective - Vital Signs/Intake and Output Vital Signs (last 24 hours): Temp Pulse Resp BP Pulse Ox 98.7 F 86 18 152/66 H 98 10/15/17 06:00 10/15/17 06:00 10/15/17 06:00 10/15/17 06:00 10/15/17 06:00 Intake and Output: 10/15/17 10/15/17 06:59 18:59 Intake Total 1200 Output Total 900 Balance 300 - Medications Medications: Current Medications Acetaminophen (Tylenol 325mg Tab) 650 mg PO Q6H PRN PRN Reason: Pain, moderate (4-7) Last Admin: 10/13/17 03:21 Dose: 650 mg Amlodipine Besylate (Norvasc) 10 mg PO DAILY [facility] Atorvastatin Calcium (Lipitor) 80 mg PO DIN [facility] Last Admin: 10/14/17 17:21 Dose: 80 mg Clonidine HCl (Catapres-Tts3 0.3 Mg/24 Hr) 1 patch TD Q7D@1000 [facility] Clopidogrel Bisulfate (Plavix) 75 mg PO DAILY [facility] Last Admin: 10/14/17 09:34 Dose: 75 mg Famotidine (Pepcid) 40 mg PO HS [facility] Last Admin: 10/14/17 21:24 Dose: 40 mg Hydralazine HCl (Apresoline) 10 mg IVP Q6H PRN PRN Reason: Other Last Admin: 10/14/17 07:11 Dose: 10 mg Hydralazine HCl (Apresoline) 50 mg PO BID [facility] Last Admin: 10/14/17 17:20 Dose: 50 mg Hydrochlorothiazide (Hydrodiuril) 50 mg PO DAILY [facility] Last Admin: 10/14/17 09:33 Dose: 50 mg Insulin Detemir (Levemir) 10 unit SC DAILY [facility] Last Admin: 10/14/17 09:32 Dose: 10 unit Insulin Human Regular (Humulin R Med) 0 units SC [facility] PRN Reason: Protocol Last Admin: 10/15/17 08:15 Dose: 3 units Loratadine (Claritin) 10 mg PO DAILY [facility] Last Admin: 10/14/17 09:32 Dose: 10 mg Losartan Potassium (Cozaar) 100 mg PO DAILY [facility] Last Admin: 10/14/17 09:34 Dose: 100 mg Metoprolol Tartrate (Lopressor) 50 mg PO TID [facility] Last Admin: 10/14/17 17:21 Dose: 50 mg Montelukast Sodium (Singulair) 10 mg PO HS [facility] Last Admin: 10/14/17 21:24 Dose: 10 mg Olopatadine HCl (Patanol 0.1% Opht Soln) 0 ml OU TID PRN PRN Reason: Allergy symptoms - Labs Labs: 10/13/17 06:30 10/13/17 06:30 PT 10.3 SECONDS (9.4-12.5) 10/10/17 10:06 INR 0.94 (0.93-1.08) 10/10/17 10:06 APTT 30.6 Seconds (25.1-36.5) 10/10/17 10:06 Assessment and Plan - Assessment and Plan (Free Text) Plan: 72 yr female w/ history of DM, HTN, and gastritis. Seen at bedside . She is uncomfortable about the new onset of L side hemiparesis. Her arm was offloaded on towels and instructed to squeeze hand for some range of motion exercises. She denies headaches, n/v, chills, diarrhea, constipation, urinary changes. No distress noted. pt is seen and examined at bed side , looking uncomfortable about incresing left sided w, agreed all above . neuro is on the case . d/d with neurologist , went for Echo . will get pt ,ot
--- NOTE | 2017-10-14 13:33 | PN ---
DATE: SUBJECTIVE: This is a 72-year-old female who was seen for left facial droop and dysarthria. Repeat MRI show sightly increase in the right pontine infarct, and past medical history of diabetes, hypertension, and dyslipidemia. On examination, this is a 72-year-old female with past medical history of diabetes, dyslipidemia, hypertension, came to hospital with left arm and left leg weakness, dizziness, high blood pressure and the patient had a repeat MRI of the head, which showed slight increase in the right pontine infarct. The workup in progress. Continue present management. We will follow up. Diony More MD
--- NOTE | 2017-10-14 19:28 | PN ---
DATE: 10/14/2017 REASON FOR CONSULTATION: Acute CVA, cardiac evaluation. SUBJECTIVE: The patient is complaining of more numbness on left side of the face, more weakness of the left upper and lower extremities. It appears left arm weaker than right, also the left lower extremity appears weaker, and the patient complains of numbness. PHYSICAL EXAMINATION: VITAL SIGNS: Temperature afebrile, heart rate 87, blood pressure 144/70. HEENT: PERRLA. Extraocular muscles intact. NECK: Supple. No carotid bruits or thyromegaly. CHEST: Clear to auscultation. HEART: S1 and S2, regular. ABDOMEN: Soft. EXTREMITIES: Clubbing and cyanosis negative. LABORATORY DATA: Blood workup as follows: WBC 10.3, hemoglobin 12.9, hematocrit 38.8, platelet count 383. Chemistry show sodium 133, potassium 3.9, chloride 101, carbon dioxide 24, anion gap of 15, BUN 16, and creatinine 0.5. IMPRESSION: Recurrent cerebrovascular accident progressively worsening weakness, uncontrolled hypertension, very poorly controlled hypertensive emergency, sinus tachycardia, transient ischemic attack, accelerated hypertension, and acute cerebrovascular accident. RECOMMENDATION: Ask Geovanna, Nurse Practitioner to add an STAT MRI of the brain. Neuro evaluation. Aggressively controlled blood pressure yesterday. Increase blood pressure medication, clonidine back to 0.2 mg, blood pressure better controlled. Continue hydralazine b.i.d. and continue p.r.n. Continue amlodipine and continue metoprolol 50 b.i.d. We will increase metoprolol also to 50 t.i.d. Monitor closely. Follow up the MRI. Follow up Neuro. We will monitor for the heart rate. Also, the patient is on Plavix as per Neuro. We will follow with you. Follow up with MRI result. Thank you Dr. Alicea, for providing us the opportunity in taking care of the patient, Sim Lane. Kesha Rodas MD
--- NOTE | 2017-10-14 19:50 | CARD ---
APPROVED REPORT EXAM: Two-dimensional and M-mode echocardiogram with Doppler and color Doppler. INDICATION CVA/TIA BUBBLE STUDY 2D DIMENSIONS Left Atrium (2D)3.8 (1.6-4.0cm)IVSd1.1 (0.7-1.1cm) LVDd3.6 (3.9-5.9cm)PWd1.4 (0.7-1.1cm) LVDs2.2 (2.5-4.0cm)FS (%) 39.1 % LVEF (%)70.6 (>50%) Aortic Valve AoV Peak Uxdyfwsi971.0cm/Laurence Peak GR.5mmHg Mitral Valve MV E Dnglbhyk63.6cm/sMV A Orcybszi16.1cm/sE/A ratio0.7 TDI E/Lateral E'0.0E/Medial E'0.0 LEFT VENTRICLE The left ventricle is normal size. There is normal left ventricular wall thickness. The left ventricular function is normal.EF-65-70% There is normal LV segmental wall motion. Transmitral Doppler flow pattern is Grade III-reversible restrictive diastolic dysfunction. No left ventricle thrombus noted on this study. There is no ventricular septal defect visualized. There is no left ventricular aneurysm. RIGHT VENTRICLE The right ventricle is normal size. There is normal right ventricular wall thickness. The right ventricular systolic function is normal. ATRIA The left atrium size is normal. The right atrium size is normal. The interatrial septum is intact with no evidence for an atrial septal defect. AORTIC VALVE The aortic valve is thickened but opens well. The aortic valve is mildly to moderately sclerotic. There is trace aortic regurgitation. There is no aortic valvular stenosis. There is no aortic valvular vegetation. MITRAL VALVE The mitral valve is thickened but opens well. Mitral annular calcification is mild. Mitral regurgitation is mild. There is no mitral valve stenosis. There is no evidence of mitral valve prolapse. TRICUSPID VALVE The tricuspid valve leaflets are thickened , but open well. There is trace tricuspid regurgitation. There is no tricuspid valve stenosis. There is no tricuspid valve prolapse or vegetation. PULMONIC VALVE The pulmonic valve is mildly thickened. There is no pulmonic valvular regurgitation. There is no pulmonic valvular stenosis. GREAT VESSELS The aortic root is normal in size. The ascending aorta is normal in size. The pulmonary artery is normal. The IVC is normal in size and collapses >50% with inspiration. PERICARDIAL EFFUSION There is no pleural effusion. There is no pericardial effusion. <Conclusion> Normal chamber Size. EF-65-70%. Trace TR/AR Mild MR Intact intra atrial septim by Bubble study.( No PFO)
[2017-10-15] MEDS: Insulin Reg-MEDIUM-Coverage SC SCH ×5 (02:19→22:00)
[2017-10-15] MEDS: Insulin Detemir 100 units/ml Vial (Levemir) SC SCH (11:13)
--- NOTE | 2017-10-15 14:51 | PN ---
DATE: SUBJECTIVE: The patient is seen and examined at the bedside looking comfortable. No nausea, vomiting, or diarrhea. No hematuria. No hematochezia. Slept whole night good. No fever. No chills. Still having weakness in the left upper and lower extremity. PHYSICAL EXAMINATION: VITAL SIGNS: Temperature 98.7, pulse 111, blood pressure 142/63, and respiratory rate 18. HEENT: Head is normocephalic and atraumatic. Eyes, PERRLA. Extraocular muscles intact. Conjunctivae clear. Nose, patent. Mucous membranes moist. NECK: Supple. No carotid bruits, JVD, or thyromegaly. CHEST: Bilaterally symmetrical. HEART: S1 and S2 positive. LUNGS: Clear to auscultation. ABDOMEN: Soft. Bowel sounds present. No organomegaly. EXTREMITIES: Left upper extremity is weak. NEUROLOGIC: The patient is oriented x3. MEDICATIONS: Hydralazine, Catapres, Claritin, Cozaar, hydrochlorothiazide, Levemir, Lipitor, Lopressor, Norvasc, Patanol eyedrops, Pepcid, Plavix, Singulair, and Tylenol. LABORATORY DATA: We do not have recent labs today. Glucose 228, 242, 216, 260, 221. ASSESSMENT AND PLAN: Ms. Sim Lane is a 72-year-old lady female with recurrent cerebrovascular accident, progressively worsening weakness in the left side, uncontrolled hypertension, very poorly controlled because of hypertensive emergency, sinus tachycardia, history of transient ischemic attack, and accelerated hypertension. A stat MRI of the brain done. Reevaluation of Neurology done. Rearrangement of the blood pressure medications done. Still has little bit of dysarthria, history of diabetes mellitus, dyslipidemia. MRI showed slight increase in the right pontine infarct. Discussion done with Dr. Ceferino More. Blood pressure today is 142/63, still on the higher side. Discussion done with nursing staff and need aggressive physical therapy. GI and DVT prophylaxis. Repeat labs. We will follow up. Laxmi Alicea MD
--- NOTE | 2017-10-15 23:36 | PN ---
DATE: 10/15/2017 REASON FOR CONSULTATION AND FOLLOWUP: Acute CVA, cardiac evaluation. SUBJECTIVE: The patient feels better than yesterday. PHYSICAL EXAMINATION: VITAL SIGNS: As follows; temperature afebrile, heart rate 84, blood pressure 150/69. HEENT: PERRLA. Extraocular muscles intact. NECK: Supple. No carotid bruits or thyromegaly. CHEST: Clear to auscultation. HEART: S1 and S2, regular. ABDOMEN: Soft. EXTREMITIES: Clubbing and cyanosis negative. LABORATORY DATA: Blood workup as follows: WBC 10.9, hemoglobin 12.9, hematocrit 38.8, platelet count 383 as of yesterday. Repeat stat MRI done yesterday that showed progression of slight increased size of pontine infarct. Echocardiography done that showed normal chamber ejection fraction 65% to 70%, trace AR, mild MR, intact intraatrial septum by bubble study. No PFO noted. RECOMMENDATION: Aggressive control of blood pressure, hydralazine increased to 50 b.i.d. and continue metoprolol. Continue clonidine patch. Now, the patient's blood pressure is much significantly improved. We will increase clonidine to three times a day now. We will follow with you. Thank you Dr. Alicea, for providing us the opportunity in taking care of the patient, Ariana Montemayor. Kesha Rodas MD
[2017-10-16 07:03] LABS: HEMOGLOBIN 13.3 g/dL (12.0-16.0); MEAN CELL VOLUME 86.7 fl (80.0-105.0); MEAN CORPUSCULAR HGB CONC 33.4 g/dl (31.0-37.0); MEAN PLATELET VOLUME 10.2 fl (7.0-11.0); RBC 4.59 10^6/uL (3.5-6.1); RED CELL DISTRIBUTION WIDTH 13.6 % (11.5-14.5); WHITE BLOOD COUNT 9.8 10^3/ul (4.5-11.0)
[2017-10-16 07:08] VITALS: RESP 19
[2017-10-16 08:25] LABS: BLOOD UREA NITROGEN 26 mg/dL (7-21); CALCIUM 9.8 mg/dL (8.4-10.5); GFR AFRICAN-AMERICAN > 60; GFR NON-AFRICAN AMERICAN > 60
[2017-10-16] MEDS: Insulin Reg-MEDIUM-Coverage SC SCH ×4 (08:31→18:43)
[2017-10-16] MEDS: Insulin Detemir 100 units/ml Vial (Levemir) SC SCH (11:00)
--- NOTE | 2017-10-16 11:04 | PN ---
DATE: 10/16/2017 NEUROLOGY FOLLOWUP CHIEF COMPLAINT: Followup for left facial dysarthria and left-sided weakness. SUBJECTIVE: The patient is seen and examined at the bedside. Has left side weakness from her increased infarct in the right pontine area due to uncontrolled blood pressure. Currently, her blood pressure is much better since her blood pressure medications are adjusted. She is awaiting acute rehab. PAST MEDICAL HISTORY: Type 2 diabetes mellitus, hypertension, dyslipidemia. REVIEW OF SYSTEMS: A 14-point review of systems is negative except in the HPI. SOCIAL HISTORY: No illicit drug use, smoking, or ETOH abuse. FAMILY HISTORY: Noncontributory. PHYSICAL EXAMINATION: VITAL SIGNS: Temperature of 98.2, pulse rate of 82, blood pressure of 147/70, respiratory rate of 19, oxygen saturation 97% via room air. GENERAL: The patient is sitting up in bed, in no acute distress. HEENT: Head is atraumatic and normocephalic. PERRLA. Extraocular muscles intact. NECK: Supple. No JVD. No adenopathy noted. LUNGS: Clear to auscultation. No adventitious sounds. HEART: S1 and S2. Normal rate and rhythm. No murmurs, rubs, or gallops. ABDOMEN: Soft, nontender, nondistended. Bowel sounds present. EXTREMITIES: No clubbing. No cyanosis. Peripheral pulses are 2+ felt bilaterally. NEUROLOGIC: The patient is alert and oriented to person, place, month, and year. Speech is fluent without any errors, except for very slight dysarthria. Cranial nerves II through XII are intact. Some mild left nasolabial fold flattening. Motor exam: Right side intact. Left upper and lower extremity is 4/5. Toes are upgoing bilaterally. Sensory exam: Decreased light touch and pinprick to the calves bilaterally. Decreased vibration of the toes. DTRs are 2+ throughout, 1 at the knees and ankles. Coordination of [id number] intact on the right, but difficult on the left due to left upper extremity weakness. Gait is deferred for now. LABORATORY DATA: Sodium is 132, potassium 3.8, chloride 97, carbon dioxide 22, BUN of 26, creatinine 0.6, random glucose of 249. ASSESSMENT AND PLAN: This is a 72-year-old woman with past medical history of type 2 diabetes mellitus, dyslipidemia, hypertension who presented to the hospital with transient left arm weakness and leg weakness and numbness and found to have hypertensive urgency of systolic more than 200, underwent a brain MRI causing acute right parasagittal mid pontine infarct, which is secondary to diffuse atherosclerotic disease, well controlled hypertension. The hypertension was getting worse throughout the hospital course, therefore, she had a slight increase in the right pontine infarct causing worsening weakness on the left side and left dysarthria. Currently, A1c is 7.6 and carotid Doppler showed 40% to 59% proximal internal carotid artery stenosis bilaterally. Overall, her stroke was secondary to uncontrolled hypertension and secondary to diffuse atherosclerotic disease. At this time: 1. Continue with current blood pressure medications such as Catapres, clonidine, as well as hydralazine. 2. Continue with Plavix 75 mg and atorvastatin 80 mg for stroke prevention. 3. Diabetic diet. Keep blood sugars between 140 to 180. 4. Await an acute rehabilitation for physical and occupational therapy. Thank you for this followup. Ceferino More MD
--- NOTE | 2017-10-16 13:07 | CP.PCM.PCO ---
Physician Communication Note - Physician Communication Note Physician Communication Note: spoke to Dr More re: pt status and discharge to Acute rehab pending
--- NOTE | 2017-10-16 13:13 | CP.PCM.DIS ---
<SarahSteph Naida - Last Filed: 10/16/17 20:56> Provider - Provider Date of Admission: 10/10/17 11:15 Attending physician: Laxmi Alicea MD Primary care physician: Aurea Carrillo MD Consults: Neurologist - Dr. More Knockdown Man - Dr. Rodas Time Spent in preparation of Discharge (in minutes): 45 Diagnosis - Discharge Diagnosis (1) Hypertensive crisis Status: Acute (2) Hemiparesis affecting left side as late effect of cerebrovascular accident Status: Acute (3) Diabetes mellitus with hyperglycemia Status: Acute (4) Acute CVA (cerebrovascular accident) Status: Acute Hospital Course - Lab Results Lab Results: Micro Results 10/10/17 15:10 Nose MRSA Culture (Admit) - Final MRSA NOT DETECTED Most Recent Lab Values WBC 9.8 10^3/ul (4.5-11.0) 10/16/17 06:00 RBC 4.59 10^6/uL (3.5-6.1) 10/16/17 06:00 Hgb 13.3 g/dL (12.0-16.0) 10/16/17 06:00 Hct 39.8 % (36.0-48.0) 10/16/17 06:00 MCV 86.7 fl (80.0-105.0) 10/16/17 06:00 MCH 29.0 pg (25.0-35.0) 10/16/17 06:00 MCHC 33.4 g/dl (31.0-37.0) 10/16/17 06:00 RDW 13.6 % (11.5-14.5) 10/16/17 06:00 Plt Count 333 10^3/uL (120.0-450.0) 10/16/17 06:00 MPV 10.2 fl (7.0-11.0) 10/16/17 06:00 Gran % 82.2 % (50.0-68.0) H 10/10/17 10:06 Lymph % (Auto) 10.4 % (22.0-35.0) L 10/10/17 10:06 Ness % (Auto) 6.0 % (1.0-6.0) 10/10/17 10:06 Eos % (Auto) 1.0 % (1.5-5.0) L 10/10/17 10:06 Baso % (Auto) 0.4 % (0.0-3.0) 10/10/17 10:06 Gran # 9.59 (1.4-6.5) H 10/10/17 10:06 Lymph # 1.2 (1.2-3.4) 10/10/17 10:06 Ness # 0.7 (0.1-0.6) H 10/10/17 10:06 Eos # 0.1 (0.0-0.7) 10/10/17 10:06 Baso # 0.05 K/mm3 (0.0-2.0) 10/10/17 10:06 PT 10.3 SECONDS (9.4-12.5) 10/10/17 10:06 INR 0.94 (0.93-1.08) 10/10/17 10:06 APTT 30.6 Seconds (25.1-36.5) 10/10/17 10:06 Sodium 133 mmol/L (132-148) 10/16/17 06:00 Potassium 3.8 mmol/L (3.6-5.0) 10/16/17 06:00 Chloride 97 mmol/L (98-107) L 10/16/17 06:00 Carbon Dioxide 22 mmol/L (21-33) 10/16/17 06:00 Anion Gap 18 (10-20) 10/16/17 06:00 BUN 26 mg/dL (7-21) H 10/16/17 06:00 Creatinine 0.6 mg/dl (0.7-1.2) L 10/16/17 06:00 Est GFR ( Amer) > 60 10/16/17 06:00 Est GFR (Non-Af Amer) > 60 10/16/17 06:00 POC Glucose (mg/dL) 291 mg/dL (65-110) H 10/16/17 11:48 Random Glucose 249 mg/dL (70-110) H 10/16/17 06:00 Hemoglobin A1c 7.6 % (4.2-6.5) H 10/11/17 05:00 Calcium 9.8 mg/dL (8.4-10.5) 10/16/17 06:00 Total Bilirubin 0.8 mg/dL (0.2-1.3) 10/10/17 10:06 AST 46 U/L (14-36) H 10/10/17 10:06 ALT 36 U/L (7-56) 10/10/17 10:06 Alkaline Phosphatase 100 U/L (38-126) 10/10/17 10:06 Troponin I < 0.01 ng/mL 10/10/17 10:06 Total Protein 8.9 g/dL (5.8-8.3) H 10/10/17 10:06 Albumin 4.9 g/dL (3.0-4.8) H 10/10/17 10:06 Globulin 4.1 gm/dL 10/10/17 10:06 Albumin/Globulin Ratio 1.2 (1.1-1.8) 10/10/17 10:06 Triglycerides 116 mg/dL (35-160) 10/11/17 05:00 Cholesterol 192 mg/dL (130-200) 10/11/17 05:00 LDL Cholesterol Direct 115 mg/dL (0-129) 10/11/17 05:00 HDL Cholesterol 56 mg/dL (29-60) 10/11/17 05:00 Vitamin B12 870 pg/mL (239-931) 10/10/17 10:06 TSH 3rd Generation 0.75 mIU/mL (0.46-4.68) 10/11/17 05:00 Urine Color Light yellow (YELLOW) 10/10/17 12:00 Urine Appearance Clear (CLEAR) 10/10/17 12:00 Urine pH 6.0 (4.7-8.0) 10/10/17 12:00 Ur Specific [place] 1.010 (1.005-1.035) 10/10/17 12:00 Urine Protein Negative mg/dL (<30 mg/dL) 10/10/17 12:00 Urine Glucose (UA) >=1000 mg/dL (NEGATIVE) 10/10/17 12:00 Urine Ketones Negative mg/dL (NEGATIVE) 10/10/17 12:00 Urine Blood Negative (NEGATIVE) 10/10/17 12:00 Urine Nitrate Negative (NEGATIVE) 10/10/17 12:00 Urine Bilirubin Negative (NEGATIVE) 10/10/17 12:00 Urine Urobilinogen 0.2 E.U./dL (<1 E.U./dL) 10/10/17 12:00 Ur Leukocyte Esterase Negative Nazario/uL (NEGATIVE) 10/10/17 12:00 Blood Type O POSITIVE 10/10/17 10:15 Blood Type Confirm O POSITIVE 10/10/17 11:10 Antibody Screen Negative 10/10/17 10:15 BBK History Checked No verified bt 10/10/17 10:15 - Hospital Course Hospital Course: 72 yr female w/ history of DM, HTN, and gastritis. Initially c/o dizziness , feeling unbalanced, L arm weakness and numbness of L fingertips. CT head showed infract changes R caudate head, chronic appearing pontine lacunar-type infarct changes, & minor chronic periventricular white matter ischemic changes. MRI of head after 3 days showed slight increase in size of R sided pontine infarct. She is now stable and cleared for acute rehab services including OT/PT of L arm/leg. Reviewed: 10/14/17 MRI brain = slight increase in size of R sided pontine infarct US carotid artery = bilateral 40-59% proximal ICA stenoses 10/10/17 MRI brain = acute/subacute infarct changes R parasagittal midpons region, mild to mod chronic white matter changes with chronic on lacunar type R caudate head, mild generalized volume loss CT angio brain = No evidence of occlusion or significant stenosis, minor calcified atherosclerotic plaque changes along both cavernous carotid siphons CT head = no acute intracranial hemorrhage, infract changes R caudate head, chronic appearing pontine lacunar-type infarct changes. minor chronic periventricular white matter ischemic changes CXR = minor linear atelectasis or scarring L mid to lower lung ECHO = EF 65-70% ECG = SR w. 1st degree AV block - Date & Time of H&P Date of H&P: 10/16/17 Time of H&P: 09:45 Discharge Exam - Head Exam Head Exam: ATRAUMATIC, NORMAL INSPECTION, NORMOCEPHALIC - Eye Exam Eye Exam: Normal appearance Pupil Exam: NORMAL ACCOMODATION - ENT Exam ENT Exam: Mucous Membranes Moist - Neck Exam Neck exam: Full Rom - Respiratory Exam Respiratory Exam: Clear to PA & Lateral, NORMAL BREATHING PATTERN - Cardiovascular Exam Cardiovascular Exam: REGULAR RHYTHM, +S1, +S2 - GI/Abdominal Exam GI & Abdominal Exam: Normal Bowel Sounds, Soft - Neurological Exam Neurological exam: Alert, Motor Sensory Deficit, Oriented x3 Additional comments: L arm flaccid, L lower extremity 3/5 - Skin Skin Exam: Dry, Intact, Normal Color, Warm Discharge Plan - Follow Up Plan Condition: STABLE Disposition: REHAB FACILITY/REHAB UNIT Instructions: Heart Healthy Diet (DC), Hypertensive Crisis (DC), Stroke (DC) Additional Instructions: - Patient is being discharged to [facility]. Referrals: Aurea Carrillo MD [Primary Care Provider] - <Laxmi Alicea - Last Filed: 10/16/17 22:05> Provider - Provider Date of Admission: 10/10/17 11:15 Attending physician: Laxmi Alicea MD Primary care physician: Aurea Carrillo MD Hospital Course - Lab Results Lab Results: Micro Results 10/10/17 15:10 Nose MRSA Culture (Admit) - Final MRSA NOT DETECTED Most Recent Lab Values WBC 9.8 10^3/ul (4.5-11.0) 10/16/17 06:00 RBC 4.59 10^6/uL (3.5-6.1) 10/16/17 06:00 Hgb 13.3 g/dL (12.0-16.0) 10/16/17 06:00 Hct 39.8 % (36.0-48.0) 10/16/17 06:00 MCV 86.7 fl (80.0-105.0) 10/16/17 06:00 MCH 29.0 pg (25.0-35.0) 10/16/17 06:00 MCHC 33.4 g/dl (31.0-37.0) 10/16/17 06:00 RDW 13.6 % (11.5-14.5) 10/16/17 06:00 Plt Count 333 10^3/uL (120.0-450.0) 10/16/17 06:00 MPV 10.2 fl (7.0-11.0) 10/16/17 06:00 Gran % 82.2 % (50.0-68.0) H 10/10/17 10:06 Lymph % (Auto) 10.4 % (22.0-35.0) L 10/10/17 10:06 Ness % (Auto) 6.0 % (1.0-6.0) 10/10/17 10:06 Eos % (Auto) 1.0 % (1.5-5.0) L 10/10/17 10:06 Baso % (Auto) 0.4 % (0.0-3.0) 10/10/17 10:06 Gran # 9.59 (1.4-6.5) H 10/10/17 10:06 Lymph # 1.2 (1.2-3.4) 10/10/17 10:06 Ness # 0.7 (0.1-0.6) H 10/10/17 10:06 Eos # 0.1 (0.0-0.7) 10/10/17 10:06 Baso # 0.05 K/mm3 (0.0-2.0) 10/10/17 10:06 PT 10.3 SECONDS (9.4-12.5) 10/10/17 10:06 INR 0.94 (0.93-1.08) 10/10/17 10:06 APTT 30.6 Seconds (25.1-36.5) 10/10/17 10:06 Sodium 133 mmol/L (132-148) 10/16/17 06:00 Potassium 3.8 mmol/L (3.6-5.0) 10/16/17 06:00 Chloride 97 mmol/L (98-107) L 10/16/17 06:00 Carbon Dioxide 22 mmol/L (21-33) 10/16/17 06:00 Anion Gap 18 (10-20) 10/16/17 06:00 BUN 26 mg/dL (7-21) H 10/16/17 06:00 Creatinine 0.6 mg/dl (0.7-1.2) L 10/16/17 06:00 Est GFR ( Amer) > 60 10/16/17 06:00 Est GFR (Non-Af Amer) > 60 10/16/17 06:00 POC Glucose (mg/dL) 176 mg/dL (65-110) H 10/16/17 16:57 Random Glucose 249 mg/dL (70-110) H 10/16/17 06:00 Hemoglobin A1c 7.6 % (4.2-6.5) H 10/11/17 05:00 Calcium 9.8 mg/dL (8.4-10.5) 10/16/17 06:00 Total Bilirubin 0.8 mg/dL (0.2-1.3) 10/10/17 10:06 AST 46 U/L (14-36) H 10/10/17 10:06 ALT 36 U/L (7-56) 10/10/17 10:06 Alkaline Phosphatase 100 U/L (38-126) 10/10/17 10:06 Troponin I < 0.01 ng/mL 10/10/17 10:06 Total Protein 8.9 g/dL (5.8-8.3) H 10/10/17 10:06 Albumin 4.9 g/dL (3.0-4.8) H 10/10/17 10:06 Globulin 4.1 gm/dL 10/10/17 10:06 Albumin/Globulin Ratio 1.2 (1.1-1.8) 10/10/17 10:06 Triglycerides 116 mg/dL (35-160) 10/11/17 05:00 Cholesterol 192 mg/dL (130-200) 10/11/17 05:00 LDL Cholesterol Direct 115 mg/dL (0-129) 10/11/17 05:00 HDL Cholesterol 56 mg/dL (29-60) 10/11/17 05:00 Vitamin B12 870 pg/mL (239-931) 10/10/17 10:06 TSH 3rd Generation 0.75 mIU/mL (0.46-4.68) 10/11/17 05:00 Urine Color Light yellow (YELLOW) 10/10/17 12:00 Urine Appearance Clear (CLEAR) 10/10/17 12:00 Urine pH 6.0 (4.7-8.0) 10/10/17 12:00 Ur Specific [place] 1.010 (1.005-1.035) 10/10/17 12:00 Urine Protein Negative mg/dL (<30 mg/dL) 10/10/17 12:00 Urine Glucose (UA) >=1000 mg/dL (NEGATIVE) 10/10/17 12:00 Urine Ketones Negative mg/dL (NEGATIVE) 10/10/17 12:00 Urine Blood Negative (NEGATIVE) 10/10/17 12:00 Urine Nitrate Negative (NEGATIVE) 10/10/17 12:00 Urine Bilirubin Negative (NEGATIVE) 10/10/17 12:00 Urine Urobilinogen 0.2 E.U./dL (<1 E.U./dL) 10/10/17 12:00 Ur Leukocyte Esterase Negative Nazario/uL (NEGATIVE) 10/10/17 12:00 Blood Type O POSITIVE 10/10/17 10:15 Blood Type Confirm O POSITIVE 10/10/17 11:10 Antibody Screen Negative 10/10/17 10:15 BBK History Checked No verified bt 10/10/17 10:15 - Hospital Course Hospital Course: pt is seen and examined at bed side , looking comfortable , no change of status , need good pt ,ot , so transfer pt to acute rehab . she had new onset cva , with , htn . d/d with neuro and goyo . cl the pt for rehab , d/d with MANAGER DIVISION Geovanna . agreed all above , will f/u
[2017-10-16 18:31] VITALS: PULSE 73; TEMP 99; O2SAT 96
[2017-10-16 18:43] VITALS: BP 119/64
--- NOTE | 2017-10-16 21:52 | PN ---
LOCATION: The patient in room 373, bed 1. REASON FOR CONSULTATION AND FOLLOWUP: Acute CVA , cardiac evaluation and followup. SUBJECTIVE: The patient conscious, alert. Denies any chest pain, shortness of breath or palpitation. MEDICATIONS: The patient is on hydralazine 50 t.i.d., clonidine 0.3 mg per 24-hour patch once a week, hydrochlorothiazide 50 mg daily, atorvastatin 80 mg, metoprolol 50 t.i.d., amlodipine 10 daily, Plavix 75 daily. PHYSICAL EXAMINATION: VITAL SIGNS: Blood pressure 152/66, pulse 77, respiration 18, the patient is afebrile. HEENT: Head is normocephalic. Eyes, pupils normal. Conjunctivae normal. Nose and throat normal. NECK: JVP low. Carotids equal. THORAX: AP diameter normal. LUNGS: Clear. CARDIOVASCULAR: S1 and S2. ABDOMEN: Soft. No tenderness. No organomegaly. Bowel sounds normal. EXTREMITIES: No clubbing. No cyanosis. LABORATORY DATA: WBC 9.8, hemoglobin 13.3, hematocrit 39.8, platelet 333, sodium 133, potassium 3.8, BUN 26, creatinine 0.6, random sugar 291, calcium 9.8. Echo showed normal chamber sizes, LV ejection fraction 65% to 70%, trace AR, mild MR, intact interatrial septum by bubble study, no PFO noted. PLAN: We will continue present therapy and monitor the blood pressure and will follow up with you. Kesha Jurado MD
== END 2017-10-16 19:01 | DRG 65 ==
LOC: ED 09:08 → ERH 11:15 → CCU 14:47 → 3RSO 10-12 17:21
PROVIDERS: ADMIT Internal Medicine; ATTEND Internal Medicine
DX: I63.9 Cerebral infarction, unspecified (principal); G81.94 Hemiplegia, unspecified affecting left nondominant side; I16.1 Hypertensive emergency; J98.11 Atelectasis; I16.0 Hypertensive urgency; I65.23 Occlusion and stenosis of bilateral carotid arteries; E11.65 Type 2 diabetes mellitus with hyperglycemia; H10.12 Acute atopic conjunctivitis, left eye; E78.00 Pure hypercholesterolemia, unspecified; K29.70 Gastritis, unspecified, without bleeding; E66.9 Obesity, unspecified; R47.1 Dysarthria and anarthria; R29.810 Facial weakness; I44.0 Atrioventricular block, first degree; R29.703 NIHSS score 3; Z68.27 Body mass index [BMI] 27.0-27.9, adult; Z79.84 Long term (current) use of oral hypoglycemic drugs; Z88.6 Allergy status to analgesic agent